=== PATIENT | male | born 1935 | race Hispanic/Latino ===

== ENCOUNTER 2016-03-08 18:31 | Inpatient (IN) | payer MEDICARE, OTHER ==
[2016-03-08 20:05] LABS: Basophils % (Auto) 0.5 % (0.0-1.8); Eosinophils % (Auto) 0.6 % (0.0-4.3); Hematocrit 35.7 % (35.5-45.6); Mean Corpuscular HGB Conc 34 % (32-34); Mean Corpuscular Hemoglobin 32 pg (28-32); Mean Corpuscular Volume 96 fl (84-94); Platelet Count 222 K/mm3 (140-440); Red Blood Count 3.74 M/mm3 (3.65-5.03); Red Cell Distribution Width 14.2 % (13.2-15.2); White Blood Count 11.6 K/mm3 (4.5-11.0)
[2016-03-08 20:22] LABS: Anion Gap 14 mmol/L; Blood Urea Nitrogen 18 mg/dL (9-20); Calcium 9.9 mg/dL (8.4-10.2); Carbon Dioxide 34 mmol/L (22-30); Chloride 95.5 mmol/L (98-107); Glucose 115 mg/dL (75-100); INR 5.74 (0.87-1.13); Partial Thromboplastin Time 80.6 Sec. (24.2-36.6); Potassium 3.7 mmol/L (3.6-5.0); Sodium 140 mmol/L (137-145)
--- NOTE | 2016-03-08 20:27 | Emergency Department Report ---
HPI - General Chief Complaint: Dyspnea/Respdistress Time Seen by Provider: 03/08/16 20:22 - HPI HPI: The patient is a 88-year-old male whom presents for evaluation of dyspnea. The patient reports greater than 2 weeks of cough productive of yellow sputum, associated with progressive dyspnea, severe for the past 2 days, exacerbated with exertion or physical activity, improved with rest. The patient denies fever, neck pain, sore throat, hemoptysis, syncope, chest pain, rash, unilateral leg swelling, calf muscle pain,. ED Past Medical Hx - Past Medical History Previous Medical History?: Yes Additional medical history: heart murmur, pt is deaf. - Social History Smoking Status: Never Smoker Substance Use Type: None ED Review of Systems ROS: Stated complaint: SHORTNESS OF BREATH Other details as noted in HPI Constitutional: weakness. denies: fever ENT: denies: throat pain Respiratory: cough, shortness of breath Cardiovascular: denies: chest pain Endocrine: excessive sweating Gastrointestinal: denies: abdominal pain Genitourinary: denies: dysuria Musculoskeletal: denies: back pain Skin: denies: rash Neurological: denies: headache Psychiatric: denies: suicidal thoughts Hematological/Lymphatic: easy bruising Physical Exam - Physical Exam Vital Signs: Vital Signs 03/08/16 03/08/16 03/08/16 16:37 17:05 18:00 Respiratory Rate Blood Pressure 108/59 115/83 128/104 O2 Sat by Pulse 96 Oximetry 03/08/16 19:57 Respiratory 12 Rate Blood Pressure O2 Sat by Pulse 98 Oximetry Physical Exam: General: poorly-nourished, well-developed, no acute distress Head: Normocephalic, atraumatic Eyes: normal sclera ENT: Mucous membranes are pink and moist Neck: trachea midline, neck supple, No neck stiffness, no cervical adenopathy Respiratory: Diminished breath sounds and expiratory wheezing present throughout lung is bilaterally, mild costal retractions, no respiratory distress Cardio: S1 and S2 present, no murmurs, rubs, gallops, capillary refill is brisk Abdomen: Normoactive bowel sounds, soft abdomen, no rigidity, no guarding or rebound tenderness Musc: No pitting edema Skin: No rash Neuro: no facial drooping, normal speech Psych: Normal affect ED Course Vital Signs 03/08/16 03/08/16 03/08/16 16:37 17:05 18:00 Respiratory Rate Blood Pressure 108/59 115/83 128/104 O2 Sat by Pulse 96 Oximetry 03/08/16 19:57 Respiratory 12 Rate Blood Pressure O2 Sat by Pulse 98 Oximetry ED Medical Decision Making - Lab Data Result diagrams: 03/08/16 19:40 03/08/16 19:40 - Medical Decision Making The patient was seen and examined by myself. The patient is placed on a surveillance specialist and continuous pulse ox. On initial evaluation, the patient was found to be in no distress, with low oxygen saturation of 89% on pulse oximetry , on 2 L of supplemental oxygen via nasal cannula. Evaluation orders were placed. The patient is given a breathing treatment and prednisone for txt of COPD. the patient is given Tessalon Perles for cough. Chest x-ray exhibits hyperinflation and otherwise is negative for focal consolidation, pleural effusions, pulmonary congestion, pneumothorax, or other acute cardio pulmonary disease process. Lab results revealed supratherapeutic INR of 5. The on-call hospitalist service was contacted. They agreed to admit the patient for further treatment and close monitoring. The ED admit order was placed. The patient was admitted in guarded condition. Critical care attestation.: If time is entered above; I have spent that time in minutes in the direct care of this critically ill patient, excluding procedure time. ED Disposition Clinical Impression: Acute exacerbation of chronic obstructive pulmonary disease (COPD), Supratherapeutic INR Respiratory failure with hypoxia Qualifiers: Chronicity: acute Qualified Code(s): J96.01 - Acute respiratory failure with hypoxia Disposition: OP ADMITTED IP TO THIS HOSP Is pt being admited?: Yes Does the pt Need Aspirin: Yes Condition: Stable Instructions: Chronic Obstructive Pulmonary Disease (ED) Referrals: PRIMARY CARE, [Primary Care Provider] - 3-5 Days Time of Disposition: 20:32
[2016-03-08] MEDS ORDERED: DUONEB 0.5 MG-3 MG/3 ML SOLN IH ONE (20:50)
[2016-03-08] MEDS ORDERED: DELTASONE PO ONE (20:51)
[2016-03-08] MEDS ORDERED: LEVAQUIN PO ONE (21:37)
[2016-03-08] MEDS ORDERED: TESSALON PERLES PO ONE (21:37)
[2016-03-08 21:47] LABS: ISTAT Base Excess 11; ISTAT HCO3 34.9; ISTAT PH 7.461 (7.35-7.45); ISTAT PO2 64 (80-105); ISTAT SO2 93; ISTAT TCO2 36
--- NOTE | 2016-03-08 22:47 | History and Physical Report ---
History of Present Illness Date of examination: 03/08/16 History of present illness: 80 year old man with history of AFIB, hypertension, hyperlipidemia comes to the emergency room for evaluation of shortness of breath.The patient refuse to give a history. the ex- states that the patient uses breathing treatment for years. Over the last 3 days, his breathing got worse. He also had a flare of gout and recieved a steroid shot. She has been using the ex- pro-air. He came to the emergency room for further evaluation, his symptoms worsen. She reports that he has a cough, unclear if it's productive Patient denies chest pain, palpitation, abdominal pain, hematochezia, dysuria, frequency, focal weakness, dysarthria, fever chills, polydipsia polyuria, hot or cold intolerance, easy bruisability, or rash or bleeding from mucosal membrane, rhinorrhea, epistaxis, earache, tinnitus, blurry vision, eye discharge , anxiety, depression. Other review of systems negative PAST SURGICAL HISTORY: Unknown SOCIAL HISTORY: Quit tobacco, no alcohol or drugs FAMILY HISTORY: Hypertension Medications and Allergies Allergies Allergy/AdvReac Type Severity Reaction Status Date / Time No Known Allergies Allergy Verified 03/09/16 01:28 Home Medications Medication Instructions Recorded Confirmed Last Taken Type Digoxin [Digox] 125 mcg PO DAILY 03/08/16 03/08/16 03/08/16 History Simvastatin [Zocor TAB] 20 mg PO QHS 03/08/16 03/08/16 03/07/16 History Sotalol HCl [Sotalol] 120 mg PO BID 03/08/16 03/08/16 03/08/16 History Warfarin [Coumadin] 2.5 mg PO QDAY 03/08/16 03/08/16 03/08/16 History Exam - Physical Exam Narrative exam: Gen. appearance: Patient lying in bed, no apparent distress HEENT: Normocephalic, atraumatic, pupils equally round and reactive to light, extraocular movement intact, and no sclericterus,. No JVD or thyromegaly or nodule,neck supple, no carotid bruit ,mucous membranes moist, no exudate or erythema Heart: S1, S2, regular rate and rhythm Lungs: Wheezing bilaterally, breathing comfortable Abdomen: Positive bowel sounds, nontender, nondistended, no organomegaly Extremity: No edema, cyanosis, clubbing Skin: No rash, nodules, warm, dry Neuro: Oriented 3, cranial nerves II-12 intact, speech is fluent, motor and sensory intact - Constitutional Vitals: Temp Pulse Resp BP Pulse Ox 60 18 128/104 98 03/08/16 21:42 03/08/16 21:42 03/08/16 18:00 03/08/16 19:57 Results - Labs CBC & Chem 7: 03/09/16 05:49 03/09/16 05:49 Labs: Abnormal lab results 03/08/16 03/08/16 03/08/16 Range/Units 19:40 19:40 19:40 WBC 11.6 H (4.5-11.0) K/mm3 MCV 96 H (84-94) fl Lymph % (Auto) 5.9 L (13.4-35.0) % [place] % (Auto) 9.1 H (0.0-7.3) % Lymph # 0.7 L (1.2-5.4) K/mm3 [place] # 1.1 H (0.0-0.8) K/mm3 Seg Neutrophils % 83.9 H (40.0-70.0) % Seg Neutrophils # 9.7 H (1.8-7.7) K/mm3 PT 52.4 H (12.2-14.9) Sec. INR 5.74 H* (0.87-1.13) APTT 80.6 H* (24.2-36.6) Sec. POC ABG pH (7.35-7.45) POC ABG pCO2 (35-45) POC ABG pO2 (80-105) Chloride 95.5 L (98-107) mmol/L Carbon Dioxide 34 H (22-30) mmol/L Glucose 115 H (75-100) mg/dL NT-Pro-B Natriuret Pep (0-900) pg/mL 03/08/16 03/08/16 Range/Units 19:40 21:15 WBC (4.5-11.0) K/mm3 MCV (84-94) fl Lymph % (Auto) (13.4-35.0) % [place] % (Auto) (0.0-7.3) % Lymph # (1.2-5.4) K/mm3 [place] # (0.0-0.8) K/mm3 Seg Neutrophils % (40.0-70.0) % Seg Neutrophils # (1.8-7.7) K/mm3 PT (12.2-14.9) Sec. INR (0.87-1.13) APTT (24.2-36.6) Sec. POC ABG pH 7.461 H (7.35-7.45) POC ABG pCO2 49.0 H (35-45) POC ABG pO2 64 L (80-105) Chloride (98-107) mmol/L Carbon Dioxide (22-30) mmol/L Glucose (75-100) mg/dL NT-Pro-B Natriuret Pep 6803 H (0-900) pg/mL - Imaging and Cardiology EKG: image reviewed Chest x-ray: image reviewed Assessment and Plan COPD exacerabation Afib with supra-therapeutic INR Hypertension Hyperlipidemia Admit to medicine Start high dose IV steroids, nebulizer treatment Check cardiac enzymes, hold coumadin Continue outpatient medications DVT prophalaxis with coumadin
[2016-03-09] MEDS ORDERED: DUONEB 0.5 MG-3 MG/3 ML SOLN IH ONE (01:25)
[2016-03-09] MEDS ORDERED: MILK OF MAGNESIA PO PRN (01:45)
[2016-03-09] MEDS ORDERED: ZOFRAN IV PRN (01:45)
[2016-03-09] MEDS ORDERED: TYLENOL PO PRN (01:45)
[2016-03-09] MEDS ORDERED: DULCOLAX PR PRN (01:45)
[2016-03-09] MEDS ORDERED: DUONEB 0.5 MG-3 MG/3 ML SOLN IH SCH (02:00)
[2016-03-09 06:11] LABS: Hematocrit 31.2 % (35.5-45.6); Hemoglobin 10.7 gm/dl (11.8-15.2); Mean Corpuscular HGB Conc 34 % (32-34); Mean Corpuscular Hemoglobin 33 pg (28-32); Mean Corpuscular Volume 96 fl (84-94); Platelet Count 193 K/mm3 (140-440); Red Blood Count 3.26 M/mm3 (3.65-5.03); Red Cell Distribution Width 14.2 % (13.2-15.2)
[2016-03-09 06:23] LABS: INR 4.67 (0.87-1.13)
[2016-03-09 06:51] LABS: Blood Urea Nitrogen 20 mg/dL (9-20); Calcium 9.5 mg/dL (8.4-10.2); Carbon Dioxide 38 mmol/L (22-30); Chloride 95.3 mmol/L (98-107); Glucose 146 mg/dL (75-100); Potassium 3.7 mmol/L (3.6-5.0); Sodium 139 mmol/L (137-145)
[2016-03-09 06:52] LABS: Anion Gap 9 mmol/L
[2016-03-09 07:30] LABS: Creatine Kinase 15 units/L (55-170); Creatine Kinase MB < 1.0 ng/mL (0.0-4.0)
[2016-03-09] MEDS: DUONEB 0.5 MG-3 MG/3 ML SOLN IH SCH ×4 (08:09→20:05)
[2016-03-09 08:18] LABS: Creatine Kinase 14 units/L (55-170); Creatine Kinase MB < 1.0 ng/mL (0.0-4.0)
--- NOTE | 2016-03-09 09:52 | XRay Report ---
Chest 2 views: History: Shortness of breath. Findings: Normal cardiomediastinal silhouette. Trachea is midline. Evidence of COPD. No acute consolidation or pleural effusion. Impression: COPD. No acute lung changes.
[2016-03-09 11:47] LABS: Blastocytes % (Manual) 0 %
[2016-03-09 11:48] LABS: Anisocytosis 1+; Basophils % (Manual) 0 % (0.0-1.8); Diff Status Complete; Eosinophils % (Manual) 0 % (0.0-4.3); Platelet Estimate Consistent w Auto
--- NOTE | 2016-03-09 11:58 | Progress Note ---
Assessment and Plan Assessment and plan: --Coagulopathy/supratherapeutic INR Hold anticoagulants, closely monitor INRs therapeutic goal between 2 and 3 No external evidence of bleeding --A. fib/rate controlled On digoxin and beta nicola, chronic anticoagulation on Coumadin Coumadin held secondary to supratherapeutic INR --Acute exacerbation of COPD Symptoms slightly improved The new oxygen titrated to O2 sats more than 90% Nebulizers, tapering dose of IV steroids and supportive care --Hypertension Moderate control, continue current antihypertensives and when necessary hydralazine --dyslipidemia Stable on lipid-lowering medications --DVT prophylaxis supratherapeutic INR of SCDs DC planning possible discharge in 1-2 days if stable Home with home health, patient refused rehabilitation/SNF History Interval history: Patient seen and evaluated medical records reviewed No new events reported by the nursing staff Patient feels better no new complaints INR is supratherapeutic no evidence of external bleeding Patient denies any chest pain shortness of breath Vital signs reviewed stable Hospitalist Physical - Constitutional Vitals: Temp Pulse Resp BP Pulse Ox 97.6 F 65 18 180/79 98 03/09/16 08:00 03/09/16 11:27 03/09/16 11:27 03/09/16 08:00 03/09/16 08:09 General appearance: Present: no acute distress, well-nourished - EENT Eyes: Present: PERRL, EOM intact - Neck Neck: Present: supple, normal ROM - Respiratory Respiratory effort: normal Respiratory: bilateral: diminished, negative: rales, rhonchi, wheezing - Cardiovascular Rhythm: regular Heart Sounds: Present: S1 & S2 - Extremities Extremities: no ischemia, pulses intact, pulses symmetrical Peripheral Pulses: within normal limits - Abdominal General gastrointestinal: soft, non-tender, non-distended, normal bowel sounds - Integumentary Integumentary: Present: clear, warm - Psychiatric Psychiatric: appropriate mood/affect, cooperative - Neurologic Neurologic: CNII-XII intact, moves all extremities Results - Labs CBC & Chem 7: 03/09/16 05:49 03/09/16 05:49 Labs: Laboratory Last Values WBC 7.0 K/mm3 (4.5-11.0) 03/09/16 05:49 RBC 3.26 M/mm3 (3.65-5.03) L 03/09/16 05:49 Hgb 10.7 gm/dl (11.8-15.2) L 03/09/16 05:49 Hct 31.2 % (35.5-45.6) L 03/09/16 05:49 MCV 96 fl (84-94) H 03/09/16 05:49 MCH 33 pg (28-32) H 03/09/16 05:49 MCHC 34 % (32-34) 03/09/16 05:49 RDW 14.2 % (13.2-15.2) 03/09/16 05:49 Plt Count 193 K/mm3 (140-440) 03/09/16 05:49 Lymph % (Auto) 5.9 % (13.4-35.0) L 03/08/16 19:40 [place] % (Auto) 9.1 % (0.0-7.3) H 03/08/16 19:40 Eos % (Auto) 0.6 % (0.0-4.3) 03/08/16 19:40 Baso % (Auto) 0.5 % (0.0-1.8) 03/08/16 19:40 Lymph # 0.7 K/mm3 (1.2-5.4) L 03/08/16 19:40 [place] # 1.1 K/mm3 (0.0-0.8) H 03/08/16 19:40 Eos # 0.1 K/mm3 (0.0-0.4) 03/08/16 19:40 Baso # 0.1 K/mm3 (0.0-0.1) 03/08/16 19:40 Add Manual Diff Complete 03/09/16 05:49 Total Counted 100 03/09/16 05:49 Seg Neutrophils % Drag Out Man 03/09/16 05:49 Seg Neuts % (Manual) 97.0 % (40.0-70.0) H 03/09/16 05:49 Band Neutrophils % 0 % 03/09/16 05:49 Lymphocytes % (Manual) 2.0 % (13.4-35.0) L 03/09/16 05:49 Reactive Lymphs % (Man) 0 % 03/09/16 05:49 Monocytes % (Manual) 1.0 % (0.0-7.3) 03/09/16 05:49 Eosinophils % (Manual) 0 % (0.0-4.3) 03/09/16 05:49 Basophils % (Manual) 0 % (0.0-1.8) 03/09/16 05:49 Metamyelocytes % 0 % 03/09/16 05:49 Myelocytes % 0 % 03/09/16 05:49 Promyelocytes % 0 % 03/09/16 05:49 Blast Cells % 0 % 03/09/16 05:49 Nucleated RBC % Not Reportable 03/09/16 05:49 Seg Neutrophils # 9.7 K/mm3 (1.8-7.7) H 03/08/16 19:40 Seg Neutrophils # Man 6.8 K/mm3 (1.8-7.7) 03/09/16 05:49 Band Neutrophils # 0.0 K/mm3 03/09/16 05:49 Lymphocytes # (Manual) 0.1 K/mm3 (1.2-5.4) L 03/09/16 05:49 Abs React Lymphs (Man) 0.0 K/mm3 03/09/16 05:49 Monocytes # (Manual) 0.1 K/mm3 (0.0-0.8) 03/09/16 05:49 Eosinophils # (Manual) 0.0 K/mm3 (0.0-0.4) 03/09/16 05:49 Basophils # (Manual) 0.0 K/mm3 (0.0-0.1) 03/09/16 05:49 Metamyelocytes # 0.0 K/mm3 03/09/16 05:49 Myelocytes # 0.0 K/mm3 03/09/16 05:49 Promyelocytes # 0.0 K/mm3 03/09/16 05:49 Blast Cells # 0.0 K/mm3 03/09/16 05:49 WBC Morphology Not Reportable 03/09/16 05:49 Hypersegmented Neuts Not Reportable 03/09/16 05:49 Hyposegmented Neuts Not Reportable 03/09/16 05:49 Hypogranular Neuts Not Reportable 03/09/16 05:49 Smudge Cells Not Reportable 03/09/16 05:49 Toxic Granulation Not Reportable 03/09/16 05:49 Toxic Vacuolation Not Reportable 03/09/16 05:49 Dohle Bodies Not Reportable 03/09/16 05:49 Pelger-Huet Anomaly Not Reportable 03/09/16 05:49 Justino Rods Not Reportable 03/09/16 05:49 Platelet Estimate Consistent w auto 03/09/16 05:49 Clumped Platelets Not Reportable 03/09/16 05:49 Plt Clumps, EDTA Not Reportable 03/09/16 05:49 Large Platelets Not Reportable 03/09/16 05:49 Giant Platelets Not Reportable 03/09/16 05:49 Platelet Satelliting Not Reportable 03/09/16 05:49 Plt Morphology Comment Not Reportable 03/09/16 05:49 RBC Morphology Not Reportable 03/09/16 05:49 Dimorphic RBCs Not Reportable 03/09/16 05:49 Polychromasia Not Reportable 03/09/16 05:49 Hypochromasia Not Reportable 03/09/16 05:49 Poikilocytosis Not Reportable 03/09/16 05:49 Anisocytosis 1+ 03/09/16 05:49 Microcytosis Not Reportable 03/09/16 05:49 Macrocytosis Not Reportable 03/09/16 05:49 Spherocytes Not Reportable 03/09/16 05:49 Pappenheimer Bodies Not Reportable 03/09/16 05:49 Sickle Cells Not Reportable 03/09/16 05:49 Target Cells Not Reportable 03/09/16 05:49 Tear Drop Cells Not Reportable 03/09/16 05:49 Ovalocytes Not Reportable 03/09/16 05:49 Helmet Cells Not Reportable 03/09/16 05:49 [place] Bodies Not Reportable 03/09/16 05:49 [place] Rings Not Reportable 03/09/16 05:49 Daniel Cells Not Reportable 03/09/16 05:49 Bite Cells Not Reportable 03/09/16 05:49 Crenated Cell Not Reportable 03/09/16 05:49 Elliptocytes Not Reportable 03/09/16 05:49 Acanthocytes (Spur) Not Reportable 03/09/16 05:49 Rouleaux Not Reportable 03/09/16 05:49 Hemoglobin C Crystals Not Reportable 03/09/16 05:49 Schistocytes Not Reportable 03/09/16 05:49 Malaria parasites Not Reportable 03/09/16 05:49 [place] Bodies Not Reportable 03/09/16 05:49 Hem Pathologist Commnt No 03/09/16 05:49 PT 44.5 Sec. (12.2-14.9) H 03/09/16 05:49 INR 4.67 (0.87-1.13) H 03/09/16 05:49 APTT 70.0 Sec. (24.2-36.6) H* 03/09/16 05:49 POC ABG pH 7.461 (7.35-7.45) H 03/08/16 21:15 POC ABG pCO2 49.0 (35-45) H 03/08/16 21:15 POC ABG pO2 64 (80-105) L 03/08/16 21:15 POC ABG HCO3 34.9 03/08/16 21:15 POC ABG Total CO2 36 03/08/16 21:15 POC ABG O2 Sat 93 03/08/16 21:15 POC ABG Base Excess 11 03/08/16 21:15 FiO2 4 % 03/08/16 21:15 Sodium 139 mmol/L (137-145) 03/09/16 05:49 Potassium 3.7 mmol/L (3.6-5.0) 03/09/16 05:49 Chloride 95.3 mmol/L (98-107) L 03/09/16 05:49 Carbon Dioxide 38 mmol/L (22-30) H 03/09/16 05:49 Anion Gap 9 mmol/L 03/09/16 05:49 BUN 20 mg/dL (9-20) 03/09/16 05:49 Creatinine 1.0 mg/dL (0.8-1.5) 03/09/16 05:49 Estimated GFR > 60 ml/min 03/09/16 05:49 BUN/Creatinine Ratio 20.00 % 03/09/16 05:49 Glucose 146 mg/dL (75-100) H 03/09/16 05:49 Lactic Acid 1.0 mmol/L (0.7-2.0) 03/08/16 21:08 Calcium 9.5 mg/dL (8.4-10.2) 03/09/16 05:49 Total Creatine Kinase 14 units/L (55-170) L 03/09/16 07:35 CK-MB (CK-2) < 1.0 ng/mL (0.0-4.0) 03/09/16 07:35 CK-MB (CK-2) Rel Index 7.1 (0-4) H 03/09/16 07:35 Troponin T < 0.010 ng/mL (0.00-0.029) 03/09/16 07:35 NT-Pro-B Natriuret Pep 6803 pg/mL (0-900) H 03/08/16 19:40
--- NOTE | 2016-03-09 22:10 | Admit Criteria Form ---
Admission Criteria Documentation: COPD Clinical Indications for Admission to Inpatient Care (Place 'X' for any and all applicable criteria): Admission is indicated for ANY ONE of the following (1)(2)(3): [X ]I. Acute exacerbation by high-risk comorbidity (e.g., pneumonia, dysrhythmia, heart failure, pleural effusion, pneumothorax) or severe underlying COPD (e.g., steroid dependent) [ ]II. Inpatient admission required rather than observation care (see Chronic Obstructive Pulmonary Disease: Observation Care) because of ANY ONE of the following: [ ]a) New or pre-existing signs or symptoms of COPD (eg, dyspnea or Tachypnea at rest or with minimal activity) that persist despite outpatient and observation care treatment [ ]b) New-onset hypoxemia (room air SaO2 less than 90%, PO2 less than 60 mm Hg (8.0 kPa)) that persists despite outpatient and observation care treatment [ ]c) Worsening of pre-existing hypoxemia (eg, new or increased requirement for supplemental oxygen to maintain oxygenation at baseline level) that persists despite outpatient and observation care treatment, with oxygen treatment needs performable only in acute inpatient setting [ ]d) Hypercarbia (PCO2 greater than 40 mm Hg (5.3 kPa))-induced respiratory acidosis (pH less than 7.35) that persists despite outpatient and observation care treatment [ ]e) Supplemental oxygen or respiratory treatments for over 24 hours that are performable only in acute inpatient setting [ ]f) Chest tube placement with active evacuation (e.g., suction, drainage) (5) [ ]g) Other condition, treatment or monitoring requiring inpatient admission [ ]III. Planned invasive surgical or diagnostic procedures requiring acute- care hospitalization [ ]IV. Acute respiratory failure (e.g., uncompensated hypercarbia, severe hypoxemia) [ ]V. Severe comorbid condition (e.g., severe steroid myopathy, acute vertebral fracture) that has acutely worsened pulmonary function [ ]. Confusion state, lethargy, obtundation, stupor or coma Extended stay beyond goal length of stay may be needed for (31)(32): [ ]a ) Respiratory Failure. [ ]b) Severe or persisting hypoxemia or hypercarbia [ ]c) Severe or persistent dyspnea [ ]d) Comorbidities (e.g. chronic heart failure, atrial fibrillation with rapid response, pneumonia) [ ]e) Malnutrition The original [facility] content created by [facility] has been revised. The portions of the content which have been revised are identified through the use of italic text or in bold, and [facility] has neither reviewed nor approved the modified material. All other unmodified content is copyright [facility]. Please see references footnoted in the original [facility] edition 2016 Admission Criteria Met: Yes
[2016-03-10 08:09] LABS: INR 5.15 (0.87-1.13)
[2016-03-10] MEDS: DUONEB 0.5 MG-3 MG/3 ML SOLN IH SCH ×4 (09:04→21:52)
--- NOTE | 2016-03-10 12:51 | Progress Note ---
Assessment and Plan Assessment and plan: --Coagulopathy/supratherapeutic INR Worsening INR today 5.15, anticoagulants on hold, Dose of vitamin K ,No external evidence of bleeding --History of A. fib Rate controlled, digoxin and sotalol are on hold Secondary to bradycardia --Chronic anticoagulation on Coumadin, supratherapeutic INR Coumadin held, --Acute exacerbation of COPD Symptoms slightly improved The new oxygen titrated to O2 sats more than 90% Nebulizers, decrease IV steroids and supportive care --Hypertension Moderate control, continue current antihypertensives and when necessary hydralazine --dyslipidemia Stable on lipid-lowering medications --DVT prophylaxis supratherapeutic INR , SCDs --Full CODE STATUS --DC planning patient is management Plan of care discussed with the patient as well as the nurse History Interval history: Reason seen and evaluated in his room medical records reviewed No new events reported by the nursing staff Patient feels better no new complaints INR remains supratherapeutic No evidence of bleeding Hospitalist Physical - Constitutional Vitals: Temp Pulse Resp BP Pulse Ox 97.8 F 70 20 143/67 98 03/10/16 08:03 03/10/16 08:45 03/10/16 08:45 03/10/16 08:03 03/10/16 08:25 General appearance: Present: no acute distress, well-nourished, other (hearing- impaired) - EENT Eyes: Present: PERRL, EOM intact - Neck Neck: Present: supple, normal ROM - Respiratory Respiratory effort: normal Respiratory: bilateral: diminished, negative: rales, rhonchi, wheezing - Cardiovascular Rhythm: regular Heart Sounds: Present: S1 & S2 - Extremities Extremities: no ischemia, pulses intact, pulses symmetrical - Abdominal General gastrointestinal: soft, non-tender, non-distended, normal bowel sounds - Integumentary Integumentary: Present: clear, warm - Psychiatric Psychiatric: appropriate mood/affect, cooperative - Neurologic Neurologic: CNII-XII intact, moves all extremities Results - Labs CBC & Chem 7: 03/09/16 05:49 03/09/16 05:49 Labs: Laboratory Last Values WBC 7.0 K/mm3 (4.5-11.0) 03/09/16 05:49 RBC 3.26 M/mm3 (3.65-5.03) L 03/09/16 05:49 Hgb 10.7 gm/dl (11.8-15.2) L 03/09/16 05:49 Hct 31.2 % (35.5-45.6) L 03/09/16 05:49 MCV 96 fl (84-94) H 03/09/16 05:49 MCH 33 pg (28-32) H 03/09/16 05:49 MCHC 34 % (32-34) 03/09/16 05:49 RDW 14.2 % (13.2-15.2) 03/09/16 05:49 Plt Count 193 K/mm3 (140-440) 03/09/16 05:49 Lymph % (Auto) 5.9 % (13.4-35.0) L 03/08/16 19:40 Darke % (Auto) 9.1 % (0.0-7.3) H 03/08/16 19:40 Eos % (Auto) 0.6 % (0.0-4.3) 03/08/16 19:40 Baso % (Auto) 0.5 % (0.0-1.8) 03/08/16 19:40 Lymph # 0.7 K/mm3 (1.2-5.4) L 03/08/16 19:40 Darke # 1.1 K/mm3 (0.0-0.8) H 03/08/16 19:40 Eos # 0.1 K/mm3 (0.0-0.4) 03/08/16 19:40 Baso # 0.1 K/mm3 (0.0-0.1) 03/08/16 19:40 Add Manual Diff Complete 03/09/16 05:49 Total Counted 100 03/09/16 05:49 Seg Neutrophils % Director Of Religious Activities 03/09/16 05:49 Seg Neuts % (Manual) 97.0 % (40.0-70.0) H 03/09/16 05:49 Band Neutrophils % 0 % 03/09/16 05:49 Lymphocytes % (Manual) 2.0 % (13.4-35.0) L 03/09/16 05:49 Reactive Lymphs % (Man) 0 % 03/09/16 05:49 Monocytes % (Manual) 1.0 % (0.0-7.3) 03/09/16 05:49 Eosinophils % (Manual) 0 % (0.0-4.3) 03/09/16 05:49 Basophils % (Manual) 0 % (0.0-1.8) 03/09/16 05:49 Metamyelocytes % 0 % 03/09/16 05:49 Myelocytes % 0 % 03/09/16 05:49 Promyelocytes % 0 % 03/09/16 05:49 Blast Cells % 0 % 03/09/16 05:49 Nucleated RBC % Not Reportable 03/09/16 05:49 Seg Neutrophils # 9.7 K/mm3 (1.8-7.7) H 03/08/16 19:40 Seg Neutrophils # Man 6.8 K/mm3 (1.8-7.7) 03/09/16 05:49 Band Neutrophils # 0.0 K/mm3 03/09/16 05:49 Lymphocytes # (Manual) 0.1 K/mm3 (1.2-5.4) L 03/09/16 05:49 Abs React Lymphs (Man) 0.0 K/mm3 03/09/16 05:49 Monocytes # (Manual) 0.1 K/mm3 (0.0-0.8) 03/09/16 05:49 Eosinophils # (Manual) 0.0 K/mm3 (0.0-0.4) 03/09/16 05:49 Basophils # (Manual) 0.0 K/mm3 (0.0-0.1) 03/09/16 05:49 Metamyelocytes # 0.0 K/mm3 03/09/16 05:49 Myelocytes # 0.0 K/mm3 03/09/16 05:49 Promyelocytes # 0.0 K/mm3 03/09/16 05:49 Blast Cells # 0.0 K/mm3 03/09/16 05:49 WBC Morphology Not Reportable 03/09/16 05:49 Hypersegmented Neuts Not Reportable 03/09/16 05:49 Hyposegmented Neuts Not Reportable 03/09/16 05:49 Hypogranular Neuts Not Reportable 03/09/16 05:49 Smudge Cells Not Reportable 03/09/16 05:49 Toxic Granulation Not Reportable 03/09/16 05:49 Toxic Vacuolation Not Reportable 03/09/16 05:49 Dohle Bodies Not Reportable 03/09/16 05:49 Pelger-Huet Anomaly Not Reportable 03/09/16 05:49 Justino Rods Not Reportable 03/09/16 05:49 Platelet Estimate Consistent w auto 03/09/16 05:49 Clumped Platelets Not Reportable 03/09/16 05:49 Plt Clumps, EDTA Not Reportable 03/09/16 05:49 Large Platelets Not Reportable 03/09/16 05:49 Giant Platelets Not Reportable 03/09/16 05:49 Platelet Satelliting Not Reportable 03/09/16 05:49 Plt Morphology Comment Not Reportable 03/09/16 05:49 RBC Morphology Not Reportable 03/09/16 05:49 Dimorphic RBCs Not Reportable 03/09/16 05:49 Polychromasia Not Reportable 03/09/16 05:49 Hypochromasia Not Reportable 03/09/16 05:49 Poikilocytosis Not Reportable 03/09/16 05:49 Anisocytosis 1+ 03/09/16 05:49 Microcytosis Not Reportable 03/09/16 05:49 Macrocytosis Not Reportable 03/09/16 05:49 Spherocytes Not Reportable 03/09/16 05:49 Pappenheimer Bodies Not Reportable 03/09/16 05:49 Sickle Cells Not Reportable 03/09/16 05:49 Target Cells Not Reportable 03/09/16 05:49 Tear Drop Cells Not Reportable 03/09/16 05:49 Ovalocytes Not Reportable 03/09/16 05:49 Helmet Cells Not Reportable 03/09/16 05:49 [place] Bodies Not Reportable 03/09/16 05:49 [place] Rings Not Reportable 03/09/16 05:49 [place] Cells Not Reportable 03/09/16 05:49 Bite Cells Not Reportable 03/09/16 05:49 Crenated Cell Not Reportable 03/09/16 05:49 Elliptocytes Not Reportable 03/09/16 05:49 Acanthocytes (Spur) Not Reportable 03/09/16 05:49 Rouleaux Not Reportable 03/09/16 05:49 Hemoglobin C Crystals Not Reportable 03/09/16 05:49 Schistocytes Not Reportable 03/09/16 05:49 Malaria parasites Not Reportable 03/09/16 05:49 [place] Bodies Not Reportable 03/09/16 05:49 Hem Pathologist Commnt No 03/09/16 05:49 PT 48.1 Sec. (12.2-14.9) H 03/10/16 06:49 INR 5.15 (0.87-1.13) H* 03/10/16 06:49 APTT 70.0 Sec. (24.2-36.6) H* 03/09/16 05:49 POC ABG pH 7.461 (7.35-7.45) H 03/08/16 21:15 POC ABG pCO2 49.0 (35-45) H 03/08/16 21:15 POC ABG pO2 64 (80-105) L 03/08/16 21:15 POC ABG HCO3 34.9 03/08/16 21:15 POC ABG Total CO2 36 03/08/16 21:15 POC ABG O2 Sat 93 03/08/16 21:15 POC ABG Base Excess 11 03/08/16 21:15 FiO2 4 % 03/08/16 21:15 Sodium 139 mmol/L (137-145) 03/09/16 05:49 Potassium 3.7 mmol/L (3.6-5.0) 03/09/16 05:49 Chloride 95.3 mmol/L (98-107) L 03/09/16 05:49 Carbon Dioxide 38 mmol/L (22-30) H 03/09/16 05:49 Anion Gap 9 mmol/L 03/09/16 05:49 BUN 20 mg/dL (9-20) 03/09/16 05:49 Creatinine 1.0 mg/dL (0.8-1.5) 03/09/16 05:49 Estimated GFR > 60 ml/min 03/09/16 05:49 BUN/Creatinine Ratio 20.00 % 03/09/16 05:49 Glucose 146 mg/dL (75-100) H 03/09/16 05:49 Lactic Acid 1.0 mmol/L (0.7-2.0) 03/08/16 21:08 Calcium 9.5 mg/dL (8.4-10.2) 03/09/16 05:49 Total Creatine Kinase 14 units/L (55-170) L 03/09/16 07:35 CK-MB (CK-2) < 1.0 ng/mL (0.0-4.0) 03/09/16 07:35 CK-MB (CK-2) Rel Index 7.1 (0-4) H 03/09/16 07:35 Troponin T < 0.010 ng/mL (0.00-0.029) 03/09/16 07:35 NT-Pro-B Natriuret Pep 6803 pg/mL (0-900) H 03/08/16 19:40
[2016-03-10] MEDS ORDERED: VITAMIN K (ADULT ONLY) 10 MG in NACL 0.9% 50 ML IV ONE (17:00)
[2016-03-11 07:04] LABS: INR 1.47 (0.87-1.13)
[2016-03-11] MEDS: DUONEB 0.5 MG-3 MG/3 ML SOLN IH SCH ×3 (07:50→16:18)
--- NOTE | 2016-03-11 11:20 | Discharge Summary ---
Providers - Providers Date of Admission: 03/08/16 21:52 Date of discharge: 03/11/16 Attending physician: KELLY ROBERTS 03/10/16 15:47 Physical Therapy Evaluation and Treat [CONS] Routine Comment: Reason For Exam: unsteady gait/evaluation for home PT Primary care physician: MECHANICAL SYSTEM TECHNICIAN Hospitalization Reason for admission: worsening shortness of breath Condition: Stable Pertinent studies: Chest x-ray; COPD Hospital course: Final diagnosis; --Coagulopathy secondary to Coumadin toxicity resolved --History of A. fib rate controlled --Acute exacerbation of COPD --Hypertension --Dyslipidemia --Chronic anticoagulation with Coumadin 80-year-old male patient with significant history of atrial fibrillation hypertension dyslipidemia was admitted through emergency room with worsening shortness of breath patient was initially evaluated noted to be in acute exacerbation of COPD patient is on Coumadin for chronic anticoagulation for A. fib and INR was supratherapeutic with no evidence of external bleeding Admitted to the hospital symptomatically managed Coumadin was held closely monitor for any evidence of bleeding INR gradually trended down to subtherapeutic levels today Today he is comfortable in bed alert awake oriented 3 not in acute distress vital signs are stable physical examination done by me prior to discharge is unremarkable as detailed below Patient is hemodynamically and clinically stable Home health nurse to monitor INR. Physical therapy, home oxygen 2 L via nasal cannula per protocol upon discharge Patient is hemodynamically and clinically stable for discharge and as noted any further acute inpatient care at this time I spent 35 minutes coordinating this discharge Disposition: DC/TX HOME UNDER HOME HEALTH Time spent for discharge: 35 min Core Measure Documentation - Palliative Care Palliative Care/ Comfort Measures: Not Applicable - Core Measures Any of the following diagnoses?: none Exam - Constitutional Vitals: Temp Pulse Resp BP Pulse Ox 97.7 F 60 20 144/66 97 03/11/16 08:12 03/11/16 08:12 03/11/16 08:12 03/11/16 08:12 03/11/16 08:12 General appearance: Present: no acute distress, well-nourished - EENT Eyes: Present: PERRL, EOM intact - Neck Neck: Present: supple, normal ROM - Respiratory Respiratory effort: normal Respiratory: bilateral: diminished, negative: rales, rhonchi, wheezing - Cardiovascular Rhythm: regular Heart Sounds: Present: S1 & S2 - Extremities Extremities: no ischemia, pulses intact, pulses symmetrical Peripheral Pulses: within normal limits - Abdominal General gastrointestinal: Present: soft, non-tender, non-distended, normal bowel sounds - Integumentary Integumentary: Present: clear, warm - Musculoskeletal Musculoskeletal: strength equal bilaterally - Psychiatric Psychiatric: appropriate mood/affect, cooperative - Neurologic Neurologic: CNII-XII intact, moves all extremities Plan Activity: advance as tolerated, fall precautions Diet: low cholesterol, low salt, other (Coumadin precautions) Special Instructions: physical therapy, home health RN (monitor INR/target level 2-3) Durable Medical Equipment Needed Upon Discharge: Oxygen (oxygen 2 lt via NC) Additional Instructions: Hold Coumadin if INR is more than 3 in contact M.D. Hold Coumadin if bleeding is noted and contact M.D. Next INR check on 2016, target INR 2-3 Follow up with: PRIMARY CARE, [Primary Care Provider] - 3-5 Days Forms: Warfarin Discharge Instruction Prescriptions: ALBUTEROL Inhaler [ProAir HFA Inhaler] 2 puff IH QID PRN #1 inhalation PRN Reason: Shortness Of Breath Prednisone [predniSONE 10 mg (6-Day Pack, 21 Tabs)] 10 mg PO .TAPER #1 tab.ds.pk
[2016-03-11 11:57] VITALS: BP 132/82
[2016-03-11] MEDS ORDERED: COUMADIN PO SCH (17:00)
== END 2016-03-11 17:07 | disposition home health service (06) | DRG 813 ==
LOC: ED 18:31 → 3A 21:52
PROVIDERS: ADMIT Internal Medicine; ATTEND Internal Medicine
PROC: 4A033R1 Measurement of Arterial Saturation, Peripheral, Percutaneous Approach (ICD-10-PCS; principal; 2016-03-08)
DX: D68.8 Other specified coagulation defects (principal); J96.01 Acute respiratory failure with hypoxia; J44.1 Chronic obstructive pulmonary disease with (acute) exacerbation; I10 Essential (primary) hypertension; I48.91 Unspecified atrial fibrillation; E78.5 Hyperlipidemia, unspecified; T45.515A Adverse effect of anticoagulants, initial encounter; Z87.891 Personal history of nicotine dependence; Z79.899 Other long term (current) drug therapy; Z79.01 Long term (current) use of anticoagulants; Z82.49 Family history of ischemic heart disease and other diseases of the circulatory system
CPT/HCPCS: 36415; 71020; 80048; 82140; 82550; 82553; 82803; 83880; 84484; 85007; 85025; 85610; 85730; 87400; 93005; 93010; 94640; 94760; G8978-GP; G8979-GP; G8980-GP; J2920; J3430; J7512

== ENCOUNTER 2016-03-20 12:40 | Inpatient (IN) | payer MEDICARE, OTHER ==
[2016-03-20] MEDS ORDERED: CARDIZEM ONE (14:45)
[2016-03-20] MEDS ORDERED: PROAIR IH PRN (15:23)
--- NOTE | 2016-03-20 15:37 | History and Physical Report ---
History of Present Illness Date of examination: 03/20/16 Chief complaint: Shortness of breath History of present illness: Patient is a 80 yo man with a history of AFIB, hypertension and hyperlipidemia comes to the [facility] emergency department with complaints of severe constant progressively worse shortness breath is started this morning without aggravating or relieving factors. The visiting nurse came over today and checked this Coumadin level which was high. He is extremely hard of hearing. Patient denies chest pain, palpitation, abdominal pain, hematochezia, dysuria, frequency, focal weakness, dysarthria, fever chills, polydipsia polyuria, hot or cold intolerance, easy bruisability, or rash or bleeding from mucosal membrane, rhinorrhea, epistaxis, earache, tinnitus, blurry vision, eye discharge , anxiety, depression. Other review of systems negative. He was just discharged , 03/11/16 with identical symptoms. Past History Past Medical History: other (as hpi) Past Surgical History: hernia repair Social history: full code. denies: smoking, alcohol abuse, prescription drug abuse, IV drug use Family history: no significant family history Medications and Allergies Allergies Allergy/AdvReac Type Severity Reaction Status Date / Time No Known Allergies Allergy Verified 03/09/16 01:28 Home Medications Medication Instructions Recorded Confirmed Last Taken Type Digoxin [Digox] 125 mcg PO DAILY 03/08/16 03/08/16 03/08/16 History Simvastatin [Zocor TAB] 20 mg PO QHS 03/08/16 03/08/16 03/07/16 History Warfarin [Coumadin] 2.5 mg PO QDAY 03/08/16 03/08/16 03/08/16 History ALBUTEROL Inhaler [ProAir HFA 2 puff IH QID PRN #1 inhalation 03/11/16 Unknown Rx Inhaler] Prednisone [predniSONE 10 mg 10 mg PO .TAPER #1 tab.ds.pk 03/11/16 Unknown Rx (6-Day Pack, 21 Tabs)] Active Meds: Active Medications Albuterol (Proair) 2 puff IH QID PRN PRN Reason: Shortness Of Breath Digoxin (Lanoxin) 0.125 mg PO DAILY MODESTA Simvastatin (Zocor) 20 mg PO QHS MODESTA Review of Systems All systems: negative (as HPI and all other ROS reviewed and negative.) Exam - Physical Exam Narrative exam: GEN: Thin frail cachectic, NAD, AWAKE, ALERT, ORIENTATED x 3 HEENT: NCAT, PERRL, EOMI, OP CLEAR NECK: SUPPLE, NO THYROMEGALY, NO JVD, NO LAD CVS: irregular irregular, NORMAL S1S2 LUNGS/CHEST: bibasilar crackles, NORMAL CHEST EXPANSION B, diminished AIR ENTRY B ABD: SOFT NTND, GBS, NO REBOUND OR GUARDING EXT/SKIN: NO SIGNIFICANT EDEMA OR RASH MSK: FROM X 4 EXTREMITIES NEURO: CN 2-12 GROSSLY INTACT, NO FOCAL DEFICITS PSY: CALM Results - Imaging and Cardiology EKG: image reviewed Assessment and Plan Patient is a 80 yo man with a history of AFIB, hypertension and hyperlipidemia comes to the [facility] emergency department with complaints of severe constant progressively worse shortness breath is started this morning without aggravating or relieving factors. The visiting nurse came over today and checked this Coumadin level which was high. He is extremely hard of hearing. Patient denies chest pain, palpitation, abdominal pain, hematochezia, dysuria, frequency, focal weakness, dysarthria, fever chills, polydipsia polyuria, hot or cold intolerance, easy bruisability, or rash or bleeding from mucosal membrane, rhinorrhea, epistaxis, earache, tinnitus, blurry vision, eye discharge , anxiety, depression. Other review of systems negative. He was just discharged , 03/11/16 with identical symptoms. 1. Afib/aflutter RVR, given iv cardizem x 1, consult cardiology 2. Coumadin toxicity: hold Coumadin 3. AE COPD: iv steriods, nebs with a/c
[2016-03-20] MEDS ORDERED: TYLENOL PO PRN (15:47)
[2016-03-20] MEDS ORDERED: XOPENEX IH ONE ×2 (15:53→16:00)
--- NOTE | 2016-03-20 16:01 | XRay Report ---
Portable chest: There is a diffuse increase in the bronchovascular markings except for an area of relative lucency in the right upper lobe. The lungs are probably hyperinflated. There is a small nodule in the lower right lung and may contain calcium due to its density. The mediastinal contour is unremarkable. There is no obvious vascular distention. Compared to a prior examination in on March 08, 2016 been no interval changes. Compared to an exam in 2011 the lungs may be more hyperinflated and the interstitial pattern somewhat more prominent. Impressions: Findings most consistent with chronic obstructive and interstitial lung disease.
[2016-03-20] MEDS ORDERED: CARDIZEM IV ONE (16:14)
--- NOTE | 2016-03-20 16:18 | Admit Criteria Form ---
Admission Criteria Documentation: RESPIRATORY FAILURE GRG Clinical Indications for Admission to Inpatient Care (Place 'X' for any and all applicable criteria): Hospital admission is needed for appropriate care of the patient because of acute respiratory failure or insufficiency as indicated by ANY ONE of the following(1)(2)(3)(4)(5)(6)(7)(8): [X]I. Mechanical ventilation needed (acute invasive or noninvasive) [X ]II. Severe ventilation deficit as indicated by ANY ONE of the following (9 ) [X ]a) Respiratory acidosis (pH less than 7.32 and partial pressure of carbon dioxide greater than 40 mm Hg (5.3 kPa)) [ X]b) Partial pressure of carbon dioxide greater than 44 mm Hg (5.9 kPa) (new) [ ]c) Airflow measurements less than 25% of predicted (eg, peak expiratory flow rate less than 100 L/minute) [ ]d) Forced vital capacity less than 15 mL/kg of ideal body weight, or 50% decrease in vital capacity from baseline [ ]III. Noncardiac pulmonary edema not resolving with rapid emergency treatment (8) [ ]IV. Severe respiratory distress as indicated by ANY ONE of the following: [ ]a) Severe tachypnea (respiratory rate greater than 30, greater than 45 for 6-month-old, greater than 60 for ) [ ]b) Severe hypoxemia (partial pressure of oxygen less than 50 mm Hg ( 6.7 kPa) on greater than 50% oxygen or partial pressure of oxygen to FIO2 ratio less than 200) [ ]c) Mental status deterioration from respiratory disease [ ]V. Airway obstruction or inadequate protection [A](10)(11) The original [employer] content created by [employer] has been revised. The portions of the content which have been revised are identified through the use of italic text or in bold, and [email or web address] has neither reviewed nor approved the modified material. All other unmodified content is copyright [employer]. Please see references footnoted in the original [employer] edition 2016 Admission Criteria Met: Yes
[2016-03-20 16:21] LABS: ISTAT Base Excess 10; ISTAT HCO3 36.1; ISTAT PCO2 70.6 (35-45); ISTAT PH 7.317 (7.35-7.45); ISTAT PO2 53 (80-105); ISTAT SO2 83; ISTAT TCO2 38
[2016-03-20 16:34] LABS: Creatine Kinase MB 2.3 ng/mL (0.0-4.0)
[2016-03-20 16:37] LABS: Alanine Aminotransferase 22 units/L (7-56); Alkaline Phosphatase 63 units/L (35-129); Anion Gap 15 mmol/L; Bilirubin,Direct 0.3 mg/dL (0-0.2); Bilirubin,Indirect 0.4 mg/dL; Bilirubin,Total 0.7 mg/dL (0.1-1.2); Blood Urea Nitrogen 20 mg/dL (9-20); Calcium 9.5 mg/dL (8.4-10.2); Carbon Dioxide 37 mmol/L (22-30); Chloride 92.8 mmol/L (98-107); Creatine Kinase 28 units/L (55-170); Glucose 104 mg/dL (75-100); Magnesium 1.7 mg/dL (1.7-2.3); Potassium 5.2 mmol/L (3.6-5.0); Sodium 140 mmol/L (137-145); Total Protein 6.4 g/dL (6.3-8.2)
[2016-03-20 16:48] LABS: Albumin 3.4 g/dL (3.9-5); Albumin/Globulin Ratio 1.1 %
[2016-03-20] MEDS ORDERED: NACL 0.9% 500 ML 500 ML ONE (16:52)
[2016-03-20] MEDS ORDERED: NACL 0.9% 500 ML 500 ML IV ONE (16:58)
[2016-03-20 17:00] LABS: Hematocrit 43.9 % (35.5-45.6); Hemoglobin 14.4 gm/dl (11.8-15.2); Mean Corpuscular HGB Conc 33 % (32-34); Mean Corpuscular Hemoglobin 32 pg (28-32); Mean Corpuscular Volume 97 fl (84-94); Red Blood Count 4.55 M/mm3 (3.65-5.03); White Blood Count 20.1 K/mm3 (4.5-11.0)
[2016-03-20] MEDS ORDERED: LANOXIN PO SCH (17:00)
[2016-03-20] MEDS ORDERED: NACL 0.9% 1000 ML 1,000 ML IV ONE (17:00)
[2016-03-20 17:01] LABS: Platelet Count 231 K/mm3 (140-440); Red Cell Distribution Width 14.6 % (13.2-15.2)
[2016-03-20 17:08] LABS: Partial Thromboplastin Time < 20.0 Sec. (24.2-36.6)
[2016-03-20 17:12] LABS: INR 5.97 (0.87-1.13)
--- NOTE | 2016-03-20 17:17 | Emergency Department Report ---
ED General Adult HPI - General Chief complaint: Dyspnea/Respdistress Time Seen by Provider: 03/20/16 16:17 Source: patient, family - History of Present Illness Initial comments: Patient presents to the emergency department with difficulty in breathing since the early a.m. He has history of chronic atrial fibrillation and apparently a cardiomyopathy. He cannot report any history of congestive heart failure but he is a poor historian. He is on chronic oral anticoagulation. He does not refer any chest pain leg pain leg swelling. He denies any headache he denies any neurological change. He is essentially here with shortness of breath. Patient was found to have a heart rate of 125 at the time of his 12-lead EKG which shows 2-1 flutter. He was brought back to the emergency department for urgent evaluation and stabilization. -: hour(s) Consistency: constant Improves with: none Associated Symptoms: denies other symptoms - Related Data Home Medications Medication Instructions Recorded Confirmed Last Taken Simvastatin [Zocor TAB] 20 mg PO QHS 03/08/16 03/08/16 03/07/16 Warfarin [Coumadin] 2.5 mg PO QDAY 03/08/16 03/08/16 03/08/16 Cinacalcet [Sensipar] 30 mg PO QDAY 03/20/16 03/20/16 03/19/16 Sotalol HCl [Sotalol] 120 mg PO BID 03/20/16 03/20/16 03/20/16 Previous Rx's Medication Instructions Recorded Last Taken Type ALBUTEROL Inhaler [ProAir HFA 2 puff IH QID PRN #1 inhalation 03/11/16 Unknown Rx Inhaler] Allergies Allergy/AdvReac Type Severity Reaction Status Date / Time No Known Allergies Allergy Verified 03/09/16 01:28 ED Review of Systems ROS: Stated complaint: Other details as noted in HPI Comment: Unobtainable due to pts medical conditions (medical history secondary to respiratory distress. However denies fever and chest pain denies abdominal pain other systems as reviewed were negative.) ED Past Medical Hx - Past Medical History Hx Headaches / Migraines: No Hx Seizures: No Hx COPD: Yes Hx Dementia: No Additional medical history: heart murmur, pt is deaf. - Social History Smoking Status: Never Smoker Substance Use Type: None - Medications Home Medications: Home Medications Medication Instructions Recorded Confirmed Last Taken Type Simvastatin [Zocor TAB] 20 mg PO QHS 03/08/16 03/08/16 03/07/16 History Warfarin [Coumadin] 2.5 mg PO QDAY 03/08/16 03/08/16 03/08/16 History ALBUTEROL Inhaler [ProAir HFA 2 puff IH QID PRN #1 inhalation 03/11/16 Unknown Rx Inhaler] Cinacalcet [Sensipar] 30 mg PO QDAY 03/20/16 03/20/16 03/19/16 History Sotalol HCl [Sotalol] 120 mg PO BID 03/20/16 03/20/16 03/20/16 History ED Physical Exam - General Limitations: Other (respiratory distress) General appearance: lethargic (mildly) - Head Head exam: Present: atraumatic, normocephalic - Eye Eye exam: Present: normal appearance. Absent: scleral icterus - ENT ENT exam: Present: normal exam, other (upper airway congestion no stridor) - Neck Neck exam: Present: normal inspection - Respiratory Respiratory exam: Present: rhonchi (bilateral), accessory muscle use, decreased breath sounds - Cardiovascular Cardiovascular Exam: Present: tachycardia, irregular rhythm - GI/Abdominal GI/Abdominal exam: Present: soft, normal bowel sounds. Absent: distended, tenderness, guarding, rebound, rigid - Extremities Exam Extremities exam: Present: normal inspection - Neurological Exam Neurological exam: Present: CN II-XII intact. Absent: motor sensory deficit ( as testable) - Psychiatric Psychiatric exam: Present: normal mood, flat affect - Skin Skin exam: Present: warm, dry, intact, normal color. Absent: rash ED Course Vital Signs 03/20/16 03/20/16 03/20/16 13:06 13:10 13:20 Pulse Rate Pulse Rate [ Bilateral Upper Lobe] Respiratory Rate Respiratory Rate [Bilateral Upper Lobe] Blood Pressure O2 Sat by Pulse 95 98 98 Oximetry 03/20/16 03/20/16 03/20/16 13:30 13:40 13:50 Pulse Rate Pulse Rate [ Bilateral Upper Lobe] Respiratory Rate Respiratory Rate [Bilateral Upper Lobe] Blood Pressure 115/75 114/81 O2 Sat by Pulse 98 96 98 Oximetry 03/20/16 03/20/16 03/20/16 14:00 14:10 14:20 Pulse Rate 117 H Pulse Rate [ Bilateral Upper Lobe] Respiratory 26 H Rate Respiratory Rate [Bilateral Upper Lobe] Blood Pressure 114/81 137/95 152/93 O2 Sat by Pulse 98 100 100 Oximetry 03/20/16 03/20/16 03/20/16 14:30 14:40 14:50 Pulse Rate 110 H 110 H 130 H Pulse Rate [ Bilateral Upper Lobe] Respiratory 27 H 25 H 24 Rate Respiratory Rate [Bilateral Upper Lobe] Blood Pressure 152/93 160/126 159/92 O2 Sat by Pulse 96 94 91 Oximetry 03/20/16 03/20/16 03/20/16 15:00 15:10 15:20 Pulse Rate 126 H 131 H 130 H Pulse Rate [ Bilateral Upper Lobe] Respiratory 26 H 22 26 H Rate Respiratory Rate [Bilateral Upper Lobe] Blood Pressure 159/92 130/92 139/94 O2 Sat by Pulse 92 96 100 Oximetry 03/20/16 03/20/16 03/20/16 15:30 15:40 15:50 Pulse Rate 131 H 130 H 132 H Pulse Rate [ Bilateral Upper Lobe] Respiratory 24 26 H 22 Rate Respiratory Rate [Bilateral Upper Lobe] Blood Pressure 139/94 150/90 161/114 O2 Sat by Pulse 98 99 96 Oximetry 03/20/16 03/20/16 03/20/16 16:01 16:06 16:11 Pulse Rate 131 H 132 H Pulse Rate [ 130 H Bilateral Upper Lobe] Respiratory 21 24 Rate Respiratory 24 Rate [Bilateral Upper Lobe] Blood Pressure 136/91 137/77 O2 Sat by Pulse 92 91 Oximetry 03/20/16 03/20/16 03/20/16 16:12 16:13 16:21 Pulse Rate 132 H 133 H Pulse Rate [ 134 H Bilateral Upper Lobe] Respiratory 22 Rate Respiratory 22 Rate [Bilateral Upper Lobe] Blood Pressure 141/85 O2 Sat by Pulse 99 Oximetry 03/20/16 03/20/16 03/20/16 16:25 16:31 16:40 Pulse Rate 130 H 91 H 74 Pulse Rate [ Bilateral Upper Lobe] Respiratory 24 23 21 Rate Respiratory Rate [Bilateral Upper Lobe] Blood Pressure 140/50 83/46 86/52 O2 Sat by Pulse 96 97 96 Oximetry 03/20/16 03/20/16 03/20/16 16:51 16:54 17:00 Pulse Rate 91 H 86 108 H Pulse Rate [ Bilateral Upper Lobe] Respiratory 21 16 Rate Respiratory Rate [Bilateral Upper Lobe] Blood Pressure 70/38 76/43 O2 Sat by Pulse 97 97 Oximetry 03/20/16 03/20/16 03/20/16 17:11 17:21 17:30 Pulse Rate 127 H 126 H 67 Pulse Rate [ Bilateral Upper Lobe] Respiratory 21 18 19 Rate Respiratory Rate [Bilateral Upper Lobe] Blood Pressure 86/52 79/48 70/45 O2 Sat by Pulse 99 97 97 Oximetry 03/20/16 03/20/16 03/20/16 17:41 17:50 18:00 Pulse Rate 52 L 100 H 57 L Pulse Rate [ Bilateral Upper Lobe] Respiratory 16 20 18 Rate Respiratory Rate [Bilateral Upper Lobe] Blood Pressure 76/43 59/38 66/43 O2 Sat by Pulse 100 100 100 Oximetry 03/20/16 18:11 Pulse Rate 54 L Pulse Rate [ Bilateral Upper Lobe] Respiratory 19 Rate Respiratory Rate [Bilateral Upper Lobe] Blood Pressure 66/43 O2 Sat by Pulse 100 Oximetry - Reevaluation(s) Reevaluation #1: Patient was initially awake and alert. He was given 5 mg aliquots of diltiazem. His blood pressure was well maintained. He was showing more of A. fib flutter pattern. He later developed a heart rate of 131 and regular. The flutter waves were difficult to see. He did not respond to 10 mg of diltiazem. His blood pressure was normal at that time. He was given some IV fluid. He was given one dose of adenosine transiently decreased his heart rate only and he resumed a regular rate of 131. I was planning to give him some amiodarone but his heart rate decreased spontaneously to the 90s. The amiodarone was held. Yes was obtained. It showed hypercapnia and very mild acidosis. The patient was placed on BiPAP. He was a given some judicious fluid. His respiratory status seemed to be improving. No blood gas showed decreased hypercapnia and improved pH. However, the patient's blood pressure began to drop. He was given additional fluid. He was placed on a Levophed drip. I spoke to Dr. Valderrama the wet chemistry analyst livestock nutrition territory manager for [facility] and explained to him the consultation as placed by Dr. Wallis the hospitalist who is actually already admitted the patient to his service. Being that the patient's blood pressure was dropping I placed a right femoral triple-lumen catheter in the right groin. This is done without difficulty. Dr. Royal was informed. He stated he would consult Dr. Ying the chief controller station/gis software developer. Obviously the patient is to be admitted to the intensive care unit. On reassessment the nurse informs me that Levophed is being titrated. On reassessment his blood pressure is now 98 systolic on Levophed. He is more awake. He seems to be breathing amply on BiPAP. He will be closely monitored. I do not think he needs to be intubated at this juncture. 03/20/16 18:32 - Central Line Placement Left Femoral Consent Obtained: verbal consent Time Out Performed: Yes Patient Placed on Monitor/Pulse Ox: Yes Prep: mask, gown, gloves Central Line Prep: Chlorhexidine scrub Local Anesthesia Used: Lidocaine 1% Amount of Anesthesia Used (mls): 6 Ultrasound Used for Placement: No Central Line Lumen Inserted: triple Bloods Obtained for Lab: No Central Line Position: good blood return (dark red non-pulsatile) Dressing Applied: Tegaderm Patient Tolerated Procedure: well Complications: none ED Medical Decision Making - Lab Data Result diagrams: 03/20/16 14:48 03/20/16 14:48 Laboratory Results - last 24 hr 03/20/16 03/20/16 03/20/16 14:48 14:48 14:48 WBC 20.1 H RBC 4.55 Hgb 14.4 Hct 43.9 MCV 97 H MCH 32 MCHC 33 RDW 14.6 Plt Count 231 PT INR APTT POC ABG pH POC ABG pCO2 POC ABG pO2 POC ABG HCO3 POC ABG Total CO2 POC ABG O2 Sat POC ABG Base Excess FiO2 Sodium 140 Potassium 5.2 H Chloride 92.8 L Carbon Dioxide 37 H Anion Gap 15 BUN 20 Creatinine 1.0 Estimated GFR > 60 BUN/Creatinine Ratio 20.00 Glucose 104 H Lactic Acid Calcium 9.5 Magnesium 1.7 Total Bilirubin 0.7 Direct Bilirubin 0.3 H Indirect Bilirubin 0.4 AST 20 ALT 22 Alkaline Phosphatase 63 Total Creatine Kinase 28 L CK-MB (CK-2) 2.3 CK-MB (CK-2) Rel Index 8.2 H Troponin T < 0.010 NT-Pro-B Natriuret Pep 94816 H Total Protein 6.4 Albumin 3.4 L Albumin/Globulin Ratio 1.1 TSH 0.713 Free T4 1.45 02/01/17 02/01/17 02/01/17 14:48 16:15 16:29 WBC RBC Hgb Hct MCV MCH MCHC RDW Plt Count PT 54.1 H INR 5.97 H* APTT < 20.0 L POC ABG pH 7.317 L POC ABG pCO2 70.6 H POC ABG pO2 53 L POC ABG HCO3 36.1 POC ABG Total CO2 38 POC ABG O2 Sat 83 POC ABG Base Excess 10 FiO2 32 Sodium Potassium Chloride Carbon Dioxide Anion Gap BUN Creatinine Estimated GFR BUN/Creatinine Ratio Glucose Lactic Acid 1.9 Calcium Magnesium Total Bilirubin Direct Bilirubin Indirect Bilirubin AST ALT Alkaline Phosphatase Total Creatine Kinase CK-MB (CK-2) CK-MB (CK-2) Rel Index Troponin T NT-Pro-B Natriuret Pep Total Protein Albumin Albumin/Globulin Ratio TSH Free T4 - EKG Data -: EKG Interpreted by Me - EKG Data Interpretation: other (2:1 flutter) - Radiology Data interpreted by me: Chest x-ray does not show any vidhya infiltrate. However the patient is certainly dry. There is chronic interstitial fibrosis consistent with COPD. Cardiac silhouette is not significantly enlarged. Critical Care Time: Yes Critical care time in (mins) excluding proc time.: 90 Critical care attestation.: If time is entered above; I have spent that time in minutes in the direct care of this critically ill patient, excluding procedure time. ED Disposition Clinical Impression: Shock, Atrial flutter with rapid ventricular response, Hyperkalemia Hypercapnic respiratory failure Qualifiers: Chronicity: acute Qualified Code(s): J96.02 - Acute respiratory failure with hypercapnia Leukocytosis Qualifiers: Leukocytosis type: unspecified Qualified Code(s): D72.829 - Elevated white blood cell count, unspecified Disposition: OP ADMITTED IP TO THIS HOSP Is pt being admited?: Yes Does the pt Need Aspirin: Yes Condition: Stable Time of Disposition: 18:33
[2016-03-20] MEDS ORDERED: CORDARONE 150 MG in D5W 100 ML IV ONE (17:18)
[2016-03-20 17:23] LABS: Basophils % (Manual) 0 % (0.0-1.8); Blastocytes % (Manual) 0 %
[2016-03-20 17:24] LABS: Eosinophils % (Manual) 0 % (0.0-4.3)
[2016-03-20] MEDS ORDERED: XYLOCAINE 1% 20 mL ONE (17:24)
[2016-03-20 17:25] LABS: Anisocytosis 1+; Diff Status Complete
[2016-03-20] MEDS ORDERED: LEVAQUIN 750MG/150ML 750 MG/150 ML BAG IV ONE (17:30)
[2016-03-20 17:37] LABS: ISTAT Base Excess 10; ISTAT HCO3 34.9; ISTAT PCO2 57.1 (35-45); ISTAT PH 7.395 (7.35-7.45); ISTAT PO2 85 (80-105); ISTAT SO2 96; ISTAT TCO2 37
[2016-03-20] MEDS ORDERED: LEVOPHED DRIP 4 MG/NS 250 ML 4 MG/250 ML BAG IV SCH ×2 (17:50→18:51)
[2016-03-20] MEDS ORDERED: CARDIZEM PO SCH (18:00)
[2016-03-20] MEDS ORDERED: LASIX IV SCH (18:00)
[2016-03-20] MEDS: ATROVENT IH SCH (18:01)
[2016-03-20 18:56] LABS: Creatine Kinase MB 2.4 ng/mL (0.0-4.0)
[2016-03-20 18:58] LABS: Creatine Kinase 33 units/L (55-170)
[2016-03-20] MEDS ORDERED: ROCEPHIN/NS 1 GM/50 ML 1 GM/50 ML BAG IV ONE (19:00)
[2016-03-20] MEDS: ZOCOR PO SCH (23:50)
[2016-03-21] MEDS ORDERED: ROCEPHIN/NS 1 GM/50 ML 1 GM/50 ML BAG IV ONE
[2016-03-21 02:55] LABS: Hematocrit 42.1 % (35.5-45.6); Hemoglobin 13.6 gm/dl (11.8-15.2); Mean Corpuscular HGB Conc 32 % (32-34); Mean Corpuscular Hemoglobin 32 pg (28-32); Mean Corpuscular Volume 97 fl (84-94); Platelet Count 212 K/mm3 (140-440); Red Blood Count 4.32 M/mm3 (3.65-5.03); White Blood Count 14.8 K/mm3 (4.5-11.0)
[2016-03-21 03:19] LABS: BUN/Creatinine Ratio 27.5; Calcium 9.1 mg/dL (8.4-10.2); Chloride 96.2 mmol/L (98-107); Potassium 4.8 mmol/L (3.6-5.0)
[2016-03-21 03:20] LABS: Creatine Kinase MB 2.3 ng/mL (0.0-4.0)
[2016-03-21 03:22] LABS: Creatine Kinase 25 units/L (55-170)
[2016-03-21 08:53] LABS: INR 10.46 (0.87-1.13)
--- NOTE | 2016-03-21 09:42 | Progress Note ---
Assessment and Plan Assessment and plan: Acute respiratory failure secondary to COPD exacerbation and rapid atrial fibrillation. He is on BiPAP. Pulmonology following. Atrial fibrillation with rapid ventricular response. He was given amiodarone emergency department. Cardiology consulted Hypotension. He was on Levophed this has now being discontinued since blood pressure is now stable. History of hypertension. Coumadin toxicity, Coagulopathy. Coumadin was 5.9 yesterday and is 10.4 today. Discussed with cardiology. Vitamin K IV 1 dose and repeat INR. COPD exacerbation. Continue Solu-Medrol and Nebulizers. Pulmonology consulte Protein energy malnutrition. Dietary consult. DVT prophylaxis. Full CODE STATUS History Interval history: Less shortness of breath, No chest pain Hospitalist Physical - Physical exam Narrative exam: Gen appearance: not in acute distress, cachetic HEENT: Normocephalic, atraumatic Neck : supple, no JVD Lungs: lungs clear, no crackles, no wheezing . Heart : S1 and S2 irregular, no murmurs rubs or gallop, Abdomen: soft, nontender, nondistended, normal bowel sounds Extremities: No edema, clubbing or cyanosis, Neuro : Awake alert oriented 3, no focal signs Psych :appropriate mood - Constitutional Vitals: Temp Pulse Resp BP Pulse Ox 97.4 F L 58 L 14 149/71 100 03/21/16 08:00 03/21/16 06:01 03/21/16 06:01 03/21/16 06:01 03/21/16 06:01 Results - Labs CBC & Chem 7: 03/21/16 02:32 03/21/16 02:32 Labs: Laboratory Last Values WBC 14.8 K/mm3 (4.5-11.0) H 03/21/16 02:32 RBC 4.32 M/mm3 (3.65-5.03) 03/21/16 02:32 Hgb 13.6 gm/dl (11.8-15.2) 03/21/16 02:32 Hct 42.1 % (35.5-45.6) 03/21/16 02:32 MCV 97 fl (84-94) H 03/21/16 02:32 MCH 32 pg (28-32) 03/21/16 02:32 MCHC 32 % (32-34) 03/21/16 02:32 RDW 15.0 % (13.2-15.2) 03/21/16 02:32 Plt Count 212 K/mm3 (140-440) 03/21/16 02:32 Add Manual Diff Complete 03/20/16 14:48 Total Counted 100 03/20/16 14:48 Seg Neuts % (Manual) 97.0 % (40.0-70.0) H 03/20/16 14:48 Band Neutrophils % 0 % 03/20/16 14:48 Lymphocytes % (Manual) 0 % (13.4-35.0) L 03/20/16 14:48 Reactive Lymphs % (Man) 0 % 03/20/16 14:48 Monocytes % (Manual) 3.0 % (0.0-7.3) 03/20/16 14:48 Eosinophils % (Manual) 0 % (0.0-4.3) 03/20/16 14:48 Basophils % (Manual) 0 % (0.0-1.8) 03/20/16 14:48 Metamyelocytes % 0 % 03/20/16 14:48 Myelocytes % 0 % 03/20/16 14:48 Promyelocytes % 0 % 03/20/16 14:48 Blast Cells % 0 % 03/20/16 14:48 Nucleated RBC % Not Reportable 03/20/16 14:48 Seg Neutrophils # Man 19.5 K/mm3 (1.8-7.7) H 03/20/16 14:48 Band Neutrophils # 0.0 K/mm3 03/20/16 14:48 Lymphocytes # (Manual) 0.0 K/mm3 (1.2-5.4) L 03/20/16 14:48 Abs React Lymphs (Man) 0.0 K/mm3 03/20/16 14:48 Monocytes # (Manual) 0.6 K/mm3 (0.0-0.8) 03/20/16 14:48 Eosinophils # (Manual) 0.0 K/mm3 (0.0-0.4) 03/20/16 14:48 Basophils # (Manual) 0.0 K/mm3 (0.0-0.1) 03/20/16 14:48 Metamyelocytes # 0.0 K/mm3 03/20/16 14:48 Myelocytes # 0.0 K/mm3 03/20/16 14:48 Promyelocytes # 0.0 K/mm3 03/20/16 14:48 Blast Cells # 0.0 K/mm3 03/20/16 14:48 WBC Morphology Not Reportable 03/20/16 14:48 Hypersegmented Neuts Not Reportable 03/20/16 14:48 Hyposegmented Neuts Not Reportable 03/20/16 14:48 Hypogranular Neuts Not Reportable 03/20/16 14:48 Smudge Cells Not Reportable 03/20/16 14:48 Toxic Granulation Not Reportable 03/20/16 14:48 Toxic Vacuolation Not Reportable 03/20/16 14:48 Dohle Bodies Not Reportable 03/20/16 14:48 Pelger-Huet Anomaly Not Reportable 03/20/16 14:48 Justino Rods Not Reportable 03/20/16 14:48 Platelet Estimate Appears normal 03/20/16 14:48 Clumped Platelets Not Reportable 03/20/16 14:48 Plt Clumps, EDTA Not Reportable 03/20/16 14:48 Large Platelets Not Reportable 03/20/16 14:48 Giant Platelets Not Reportable 03/20/16 14:48 Platelet Satelliting Not Reportable 03/20/16 14:48 Plt Morphology Comment Not Reportable 03/20/16 14:48 RBC Morphology Not Reportable 03/20/16 14:48 Dimorphic RBCs Not Reportable 03/20/16 14:48 Polychromasia Not Reportable 03/20/16 14:48 Hypochromasia Not Reportable 03/20/16 14:48 Poikilocytosis Not Reportable 03/20/16 14:48 Anisocytosis 1+ 03/20/16 14:48 Microcytosis Not Reportable 03/20/16 14:48 Macrocytosis Not Reportable 03/20/16 14:48 Spherocytes Not Reportable 03/20/16 14:48 Pappenheimer Bodies Not Reportable 03/20/16 14:48 Sickle Cells Not Reportable 03/20/16 14:48 Target Cells Not Reportable 03/20/16 14:48 Tear Drop Cells Not Reportable 03/20/16 14:48 Ovalocytes Not Reportable 03/20/16 14:48 Helmet Cells Not Reportable 03/20/16 14:48 [place] Bodies Not Reportable 03/20/16 14:48 [place] Rings Not Reportable 03/20/16 14:48 Uriah Cells Not Reportable 03/20/16 14:48 Bite Cells Not Reportable 03/20/16 14:48 Crenated Cell Not Reportable 03/20/16 14:48 Elliptocytes Not Reportable 03/20/16 14:48 Acanthocytes (Spur) Not Reportable 03/20/16 14:48 Rouleaux Not Reportable 03/20/16 14:48 Hemoglobin C Crystals Not Reportable 03/20/16 14:48 Schistocytes Not Reportable 03/20/16 14:48 Malaria parasites Not Reportable 03/20/16 14:48 Tigre Bodies Not Reportable 03/20/16 14:48 Hem Pathologist Commnt No 03/20/16 14:48 PT 54.1 Sec. (12.2-14.9) H 03/20/16 14:48 INR 5.97 (0.87-1.13) H* 03/20/16 14:48 APTT < 20.0 Sec. (24.2-36.6) L 03/20/16 14:48 POC ABG pH 7.395 (7.35-7.45) 03/20/16 17:31 POC ABG pCO2 57.1 (35-45) H 03/20/16 17:31 POC ABG pO2 85 (80-105) 03/20/16 17:31 POC ABG HCO3 34.9 03/20/16 17:31 POC ABG Total CO2 37 03/20/16 17:31 POC ABG O2 Sat 96 03/20/16 17:31 POC ABG Base Excess 10 03/20/16 17:31 FiO2 40 % 03/20/16 17:31 Sodium 141 mmol/L (137-145) 03/21/16 02:32 Potassium 4.8 mmol/L (3.6-5.0) 03/21/16 02:32 Chloride 96.2 mmol/L (98-107) L 03/21/16 02:32 Carbon Dioxide 31 mmol/L (22-30) H 03/21/16 02:32 Anion Gap 19 mmol/L 03/21/16 02:32 BUN 33 mg/dL (9-20) H 03/21/16 02:32 Creatinine 1.2 mg/dL (0.8-1.5) 03/21/16 02:32 Estimated GFR 58 ml/min 03/21/16 02:32 BUN/Creatinine Ratio 27.50 % 03/21/16 02:32 Glucose 137 mg/dL (75-100) H 03/21/16 02:32 Lactic Acid 1.9 mmol/L (0.7-2.0) 03/20/16 16:29 Calcium 9.1 mg/dL (8.4-10.2) 03/21/16 02:32 Magnesium 1.7 mg/dL (1.7-2.3) 03/20/16 14:48 Total Bilirubin 0.7 mg/dL (0.1-1.2) 03/20/16 14:48 Direct Bilirubin 0.3 mg/dL (0-0.2) H 03/20/16 14:48 Indirect Bilirubin 0.4 mg/dL 03/20/16 14:48 AST 20 units/L (5-40) 03/20/16 14:48 ALT 22 units/L (7-56) 03/20/16 14:48 Alkaline Phosphatase 63 units/L (35-129) 03/20/16 14:48 Total Creatine Kinase 25 units/L (55-170) L 03/21/16 02:32 CK-MB (CK-2) 2.3 ng/mL (0.0-4.0) 03/21/16 02:32 CK-MB (CK-2) Rel Index 9.2 (0-4) H 03/21/16 02:32 Troponin T < 0.010 ng/mL (0.00-0.029) 03/21/16 02:32 NT-Pro-B Natriuret Pep 38156 pg/mL (0-900) H 03/20/16 14:48 Total Protein 6.4 g/dL (6.3-8.2) 03/20/16 14:48 Albumin 3.4 g/dL (3.9-5) L 03/20/16 14:48 Albumin/Globulin Ratio 1.1 % 03/20/16 14:48 TSH 0.713 mlU/mL (0.270-4.200) 03/20/16 14:48 Free T4 1.45 ng/dL (0.76-1.46) 03/20/16 14:48 Digoxin < 0.2 ng/mL (0.9-2.0) L 03/20/16 16:29
--- NOTE | 2016-03-21 09:45 | Consultation ---
History of Present Illness Consult date: 03/21/16 Requesting physician: PARVIZ PHAN Consult reason: atrial fibrillation History of present illness: The patient is a 80 year old male who is followed by Dr. Pisano in the office with a history of paroxysmal atrial fibrillation, hypertension, hyperlipidemia who presented with complaints of progressive shortness of breath. He denies any chest pain or palpitations. EKG in the ER showed atrial fibrillation with RVR. Troponin negative x 3. BNP 71938. INR 5.97, WBC 20.1. ABG showed ph of 7.395 with a pCO2 of 57.1. Echo done 09/2014 showed EF 55-60%. Past History Past Medical History: atrial fib (paroxysmal), hypertension, hyperlipidemia Past Surgical History: hernia repair Social history: full code. denies: smoking, alcohol abuse, prescription drug abuse, IV drug use Family history: no significant family history Medications and Allergies Allergies Allergy/AdvReac Type Severity Reaction Status Date / Time No Known Allergies Allergy Verified 03/09/16 01:28 Home Medications Medication Instructions Recorded Confirmed Last Taken Type Simvastatin [Zocor TAB] 20 mg PO QHS 03/08/16 03/20/16 03/19/16 History Warfarin [Coumadin] 2.5 mg PO QDAY 03/08/16 03/20/16 03/19/16 History ALBUTEROL Inhaler [ProAir HFA 2 puff IH QID PRN #1 inhalation 03/11/16 03/20/16 03/19/16 Rx Inhaler] Cinacalcet [Sensipar] 30 mg PO QDAY 03/20/16 03/20/16 03/19/16 History Sotalol HCl [Sotalol] 120 mg PO BID 03/20/16 03/20/16 03/20/16 History Active Meds: Active Medications Acetaminophen (Tylenol) 650 mg PO Q6H PRN PRN Reason: Non Cardiac Pain or Temp>100.5 Norepinephrine (Levophed Drip 4 Mg/Ns 250 Ml) 4 mg in 250 mls @ 7.5 mls/hr IV TITR MODESTA; 2 MCG/MIN PRN Reason: Protocol Last Admin: 03/20/16 18:03 Dose: 7.5 mls/hr Ipratropium Paxton (Atrovent) 0.5 mg IH QIDRT MODESTA Last Admin: 03/20/16 18:01 Dose: Not Given Methylprednisolone Sodium Succinate (Solu-Medrol) 80 mg IV Q8H [facility] Last Admin: 03/21/16 00:58 Dose: 80 mg Pantoprazole Sodium (Protonix) 40 mg IV QDAY [facility] Phytonadione (Vitamin K (Adult Only)) 5 mg SUB-Q ONCE ONE Stop: 03/21/16 09:19 Simvastatin (Zocor) 20 mg PO QHS [facility] Last Admin: 03/20/16 23:50 Dose: Not Given Review of Systems Constitutional: no fever, no chills Ears, nose, mouth and throat: no nasal congestion, no nasal discharge, no sinus pressure Cardiovascular: shortness of breath, dyspnea on exertion, no chest pain, no palpitations Respiratory: shortness of breath, dyspnea on exertion Gastrointestinal: no abdominal pain, no nausea, no vomiting, no diarrhea Genitourinary Male: no dysuria, no hematuria Musculoskeletal: no neck stiffness, no neck pain, no myalgias Integumentary: no rash, no pruritis Neurological: no parathesias, no numbness, no tingling, no headaches Endocrine: no cold intolerance, no heat intolerance Hematologic/Lymphatic: no easy bruising, no easy bleeding Allergic/Immunologic: no urticaria, no wheezing Physical Examination Last Vital Signs Temp 97.3 F L 03/21/16 12:00 Pulse 58 L 03/21/16 06:01 Resp 14 03/21/16 06:01 BP 149/71 03/21/16 06:01 Pulse Ox 100 03/21/16 06:01 General appearance: no acute distress (on bipap) HEENT: Positive: Normocephaly, Mucus Membranes Moist Neck: Positive: neck supple, trachea midline Cardiac: Positive: Reg Rate and Rhythm, S1/S2 Lungs: Positive: Decreased Breath Sounds Neuro: Positive: Grossly Intact Abdomen: Positive: Soft, Active Bowel Sounds. Negative: Tender Skin: Positive: Clear. Negative: Rash Extremities: Present: normal. Absent: edema Results 03/21/16 02:32 03/21/16 02:32 Cardiac Enzymes 03/20/16 03/21/16 Range/Units 18:25 02:32 CK-MB (CK-2) 2.4 2.3 (0.0-4.0) ng/mL Coagulation 03/21/16 Range/Units 07:41 PT 84.6 H (12.2-14.9) Sec. INR 10.46 H* (0.87-1.13) CBC 03/21/16 Range/Units 02:32 WBC 14.8 H (4.5-11.0) K/mm3 RBC 4.32 (3.65-5.03) M/mm3 Hgb 13.6 (11.8-15.2) gm/dl Hct 42.1 (35.5-45.6) % Plt Count 212 (140-440) K/mm3 Comprehensive Metabolic Panel 03/21/16 Range/Units 02:32 Sodium 141 (137-145) mmol/L Potassium 4.8 (3.6-5.0) mmol/L Chloride 96.2 L (98-107) mmol/L Carbon Dioxide 31 H (22-30) mmol/L BUN 33 H (9-20) mg/dL Creatinine 1.2 (0.8-1.5) mg/dL Glucose 137 H (75-100) mg/dL Calcium 9.1 (8.4-10.2) mg/dL - Imaging and Cardiology Echo: pending EKG: image reviewed (09/2014: EF 55-60%) EKG interpretations - Telemetry EKG Rhythm: Sinus Rhythm - EKG Supraventricular dysrhythmia: atrial fibrillation Assessment and Plan Acute respiratory failure per pulmonary Hypotension-->resolved monitor BP Paroxysmal atrial fibrillation-->currently sinus rhythm resume sotalol 120mg BID coumadin on hold due to supratherapeutic INR Echo 09/2014: EF 55-60%, repeat pending Coumadin coagulopathy Vit. K 5mg x 1, will monitor INR closely no signs of bleeding noted Leukocytosis Hypertension Hyperlipidemia The patient has been seen in conjunction with Dr. Sr who agrees with the assessment and plan of care. Thank you Dr. Phan for allowing us to participate in the care of this patient.
[2016-03-21] MEDS: ATROVENT IH SCH ×4 (10:02→21:06)
[2016-03-21] MEDS: PROTONIX IV SCH (10:03)
[2016-03-21] MEDS ORDERED: VITAMIN K (ADULT ONLY) SUB-Q ONE (10:30)
[2016-03-21] MEDS ORDERED: APRESOLINE IV PRN (11:04)
--- NOTE | 2016-03-21 11:34 | Consultation ---
History of Present Illness Consult date: 03/21/16 Requesting physician: FELIZ ORELLANA Reason for consult: other (acute respiratory failure) History of present illness: 80 y/o male with chronic afib admitted to the ICU secondary to hypotension requiring vasopressor therapy. Per chart, patient was in afib with RVR on admission and cardizem push was attempted but no success. Apparently patient is under rate control now. Not on home dose of sotalol. BP is elevated. Work of breathing also appears to be increased. Was on bipap therapy last nigh and taken off earlier this am but using accessory muscles currently and not moving much air. Sats are ok. Past History Past Medical History: atrial fib, COPD, other (as hpi) Past Surgical History: hernia repair Social history: full code. denies: smoking, alcohol abuse, prescription drug abuse, IV drug use Family history: no significant family history Medications and Allergies Allergies Allergy/AdvReac Type Severity Reaction Status Date / Time No Known Allergies Allergy Verified 03/09/16 01:28 Home Medications Medication Instructions Recorded Confirmed Last Taken Type Simvastatin [Zocor TAB] 20 mg PO QHS 03/08/16 03/20/16 03/19/16 History Warfarin [Coumadin] 2.5 mg PO QDAY 03/08/16 03/20/16 03/19/16 History ALBUTEROL Inhaler [ProAir HFA 2 puff IH QID PRN #1 inhalation 03/11/16 03/20/16 03/19/16 Rx Inhaler] Cinacalcet [Sensipar] 30 mg PO QDAY 03/20/16 03/20/16 03/19/16 History Sotalol HCl [Sotalol] 120 mg PO BID 03/20/16 03/20/16 03/20/16 History Active Meds: Active Medications Acetaminophen (Tylenol) 650 mg PO Q6H PRN PRN Reason: Non Cardiac Pain or Temp>100.5 Arformoterol Tartrate (Brovana Nebu) 15 mcg IH Q12HRT [facility] Budesonide (Pulmicort) 0.5 mg IH Q12HRT MODESTA Hydralazine HCl (Apresoline) 10 mg IV Q6HR PRN PRN Reason: SBP greater than 160 Norepinephrine (Levophed Drip 4 Mg/Ns 250 Ml) 4 mg in 250 mls @ 7.5 mls/hr IV TITR MODESTA; 2 MCG/MIN PRN Reason: Protocol Last Admin: 03/20/16 18:03 Dose: 7.5 mls/hr Ipratropium [place] (Atrovent) 0.5 mg IH QIDRT [facility] Last Admin: 03/21/16 10:02 Dose: 0.5 mg Methylprednisolone Sodium Succinate (Solu-Medrol) 80 mg IV Q8H [facility] Last Admin: 03/21/16 10:03 Dose: 80 mg Pantoprazole Sodium (Protonix) 40 mg IV QDAY [facility] Last Admin: 03/21/16 10:03 Dose: 40 mg Simvastatin (Zocor) 20 mg PO QHS [facility] Last Admin: 03/20/16 23:50 Dose: Not Given Review of Systems All systems: negative Physical Examination Vital signs: Vital Signs Pulse Ox 95 03/20/16 13:06 General appearance: appears uncomfortable, other (mild distress, very hard of hearing) Eyes: non-icteric ENT: oropharynx dry Neck: supple Effort: mildly labored Ascultation: Bilateral: diminished breath sounds Percussion: Bilateral: not dull Cardiovascular: irregular rhythm (but rate controlled) Gastrointestinal: normoactive bowel sounds, soft, non-tender Extremities: no edema normal mental status Results - Laboratory Findings CBC and BMP: 03/21/16 02:32 03/21/16 02:32 ABG POC ABG pH 7.395 (7.35-7.45) 03/20/16 17:31 POC ABG pCO2 57.1 (35-45) H 03/20/16 17:31 POC ABG pO2 85 (80-105) 03/20/16 17:31 POC ABG HCO3 34.9 03/20/16 17:31 POC ABG Total CO2 37 03/20/16 17:31 POC ABG O2 Sat 96 03/20/16 17:31 PT/INR, D-dimer PT 84.6 Sec. (12.2-14.9) H 03/21/16 07:41 INR 10.46 (0.87-1.13) H* 03/21/16 07:41 Abnormal lab findings: Abnormal Labs 03/20/16 03/20/16 03/20/16 16:15 16:29 17:31 WBC MCV PT INR POC ABG pH 7.317 L POC ABG pCO2 70.6 H 57.1 H POC ABG pO2 53 L Chloride Carbon Dioxide BUN Glucose Total Creatine Kinase CK-MB (CK-2) Rel Index Digoxin < 0.2 L 03/20/16 03/21/16 03/21/16 18:25 02:32 02:32 WBC 14.8 H MCV 97 H PT INR POC ABG pH POC ABG pCO2 POC ABG pO2 Chloride Carbon Dioxide BUN Glucose Total Creatine Kinase 33 L 25 L CK-MB (CK-2) Rel Index 7.2 H 9.2 H Digoxin 03/21/16 03/21/16 02:32 07:41 WBC MCV PT 84.6 H INR 10.46 H* POC ABG pH POC ABG pCO2 POC ABG pO2 Chloride 96.2 L Carbon Dioxide 31 H BUN 33 H Glucose 137 H Total Creatine Kinase CK-MB (CK-2) Rel Index Digoxin - Diagnostic Findings Chest x-ray: image reviewed (hyperinflation with flattened diaphragams. consistent with a diagnosis of COPD) Assessment and Plan 80 y/o male with acute respiratory failure, requiring bipap therapy, afib rate controlled, with coagulopathy and likely COPD exacerbation. 1. Restarted back on bipap 2. Added Pulmicort and Brovana 3. Correction of INR with vitamin K, repeat at 16:00 4. Change atrovent to duoneb therapy 5. Need to restart home meds. Sotalol is available on formulary here 6. Continue ICU monitoring given breathing pattern
[2016-03-21] MEDS: BROVANA NEBU IH SCH ×2 (12:44→21:07)
[2016-03-21] MEDS: PULMICORT IH SCH ×2 (12:45→21:07)
[2016-03-21 16:38] LABS: INR 11.99 (0.87-1.13)
[2016-03-21] MEDS ORDERED: ASPIRIN PR ONE (18:25)
[2016-03-21] MEDS: BETAPACE PO SCH (21:23)
[2016-03-21] MEDS: ZOCOR PO SCH (21:25)
[2016-03-22 06:34] LABS: INR 6.35 (0.87-1.13)
--- NOTE | 2016-03-22 08:33 | Progress Note ---
Assessment and Plan Acute respiratory failure per pulmonary Hypotension-->resolved Paroxysmal atrial fibrillation-->currently sinus rhythm continue sotalol 120mg BID coumadin on hold due to supratherapeutic INR Echo 09/2014: EF 55-60%, repeat pending Coumadin coagulopathy Vit. K 5mg x 1 given on 03/21/16--> will monitor INR closely no signs of bleeding noted Leukocytosis Hypertension BP elevated add norvasc 5mg daily Hyperlipidemia The patient has been seen in conjunction with Dr. Valderrama who agrees with the assessment and plan of care. Subjective Date of service: 03/22/16 Principal diagnosis: acute respiratory failure Interval history: The patient is resting in bed. No new complaints. On bipap. Sinus rhythm on the monitor. Objective Last Vital Signs Temp 97.1 F L 03/22/16 07:59 Pulse 62 03/22/16 07:51 Resp 11 L 03/22/16 07:51 BP 143/73 03/22/16 07:51 Pulse Ox 98 03/22/16 08:00 - Physical Examination General: No Apparent Distress (on bipap) HEENT: Positive: Normocephaly, Mucus Membranes Moist Neck: Positive: neck supple, trachea midline Cardiac: Positive: Reg Rate and Rhythm, S1/S2 Lungs: Positive: Decreased Breath Sounds Neuro: Positive: Grossly Intact Abdomen: Positive: Soft, Active Bowel Sounds. Negative: Tender Skin: Positive: Clear. Negative: Rash Extremities: Present: normal. Absent: edema - Labs and Meds Coagulation 03/21/16 03/21/16 03/22/16 Range/Units 07:41 16:00 04:39 PT 94.1 H 56.8 H (12.2-14.9) Sec. INR 10.46 H* 11.99 H* 6.35 H* (0.87-1.13) - Imaging and Cardiology EKG: image reviewed (09/2014: EF 55-60%) Echo: pending - Telemetry EKG Rhythm: Sinus Rhythm
--- NOTE | 2016-03-22 08:51 | Progress Note ---
Assessment and Plan Assessment and plan: Acute respiratory failure secondary to COPD exacerbation and rapid atrial fibrillation. He is still on BiPAP. Pulmonology following. Atrial fibrillation with rapid ventricular response. He was given amiodarone emergency department. Cardiology following. he is now rate controlled Hypotension. Resolved, off Levophed this has now being discontinued since blood pressure is now stable. Hypertension. Coumadin toxicity, Coagulopathy. Coumadin was 5.9 , went up to 10.4 yesterday so given Vitamin K iv. His INR is now 6.35. No signs of bleeding. Repeat in am.. COPD exacerbation. Continue Solu-Medrol and Nebulizers. Pulmonology following. Protein energy malnutrition. Dietary consulted. DVT prophylaxis on Coumadin Full CODE STATUS History Interval history: Less shortness of breath, No chest pain, still on BIPAP Hospitalist Physical - Physical exam Narrative exam: Gen appearance: not in acute distress, cachetic, on BIPAP-mask on HEENT: Normocephalic, atraumatic Neck : supple, no JVD Lungs: Decreased breath sounds bilaterally, lungs clear, no crackles, no wheezing . Heart : S1 and S2 irregular, no murmurs rubs or gallop, Abdomen: soft, nontender, nondistended, normal bowel sounds Extremities: No edema, clubbing or cyanosis, Neuro : Awake alert oriented 3, no focal signs Psych :appropriate mood - Constitutional Vitals: Temp Pulse Resp BP Pulse Ox 97.1 F L 62 11 L 143/73 98 03/22/16 07:59 03/22/16 07:51 03/22/16 07:51 03/22/16 07:51 03/22/16 08:00 General appearance: Present: no acute distress (on bipap) Results - Labs CBC & Chem 7: 03/21/16 02:32 03/21/16 02:32 Labs: Laboratory Last Values WBC 14.8 K/mm3 (4.5-11.0) H 03/21/16 02:32 RBC 4.32 M/mm3 (3.65-5.03) 03/21/16 02:32 Hgb 13.6 gm/dl (11.8-15.2) 03/21/16 02:32 Hct 42.1 % (35.5-45.6) 03/21/16 02:32 MCV 97 fl (84-94) H 03/21/16 02:32 MCH 32 pg (28-32) 03/21/16 02:32 MCHC 32 % (32-34) 03/21/16 02:32 RDW 15.0 % (13.2-15.2) 03/21/16 02:32 Plt Count 212 K/mm3 (140-440) 03/21/16 02:32 Add Manual Diff Complete 03/20/16 14:48 Total Counted 100 03/20/16 14:48 Seg Neuts % (Manual) 97.0 % (40.0-70.0) H 03/20/16 14:48 Band Neutrophils % 0 % 03/20/16 14:48 Lymphocytes % (Manual) 0 % (13.4-35.0) L 03/20/16 14:48 Reactive Lymphs % (Man) 0 % 03/20/16 14:48 Monocytes % (Manual) 3.0 % (0.0-7.3) 03/20/16 14:48 Eosinophils % (Manual) 0 % (0.0-4.3) 03/20/16 14:48 Basophils % (Manual) 0 % (0.0-1.8) 03/20/16 14:48 Metamyelocytes % 0 % 03/20/16 14:48 Myelocytes % 0 % 03/20/16 14:48 Promyelocytes % 0 % 03/20/16 14:48 Blast Cells % 0 % 03/20/16 14:48 Nucleated RBC % Not Reportable 03/20/16 14:48 Seg Neutrophils # Man 19.5 K/mm3 (1.8-7.7) H 03/20/16 14:48 Band Neutrophils # 0.0 K/mm3 03/20/16 14:48 Lymphocytes # (Manual) 0.0 K/mm3 (1.2-5.4) L 03/20/16 14:48 Abs React Lymphs (Man) 0.0 K/mm3 03/20/16 14:48 Monocytes # (Manual) 0.6 K/mm3 (0.0-0.8) 03/20/16 14:48 Eosinophils # (Manual) 0.0 K/mm3 (0.0-0.4) 03/20/16 14:48 Basophils # (Manual) 0.0 K/mm3 (0.0-0.1) 03/20/16 14:48 Metamyelocytes # 0.0 K/mm3 03/20/16 14:48 Myelocytes # 0.0 K/mm3 03/20/16 14:48 Promyelocytes # 0.0 K/mm3 03/20/16 14:48 Blast Cells # 0.0 K/mm3 03/20/16 14:48 WBC Morphology Not Reportable 03/20/16 14:48 Hypersegmented Neuts Not Reportable 03/20/16 14:48 Hyposegmented Neuts Not Reportable 03/20/16 14:48 Hypogranular Neuts Not Reportable 03/20/16 14:48 Smudge Cells Not Reportable 03/20/16 14:48 Toxic Granulation Not Reportable 03/20/16 14:48 Toxic Vacuolation Not Reportable 03/20/16 14:48 Dohle Bodies Not Reportable 03/20/16 14:48 Pelger-Huet Anomaly Not Reportable 03/20/16 14:48 Justino Rods Not Reportable 03/20/16 14:48 Platelet Estimate Appears normal 03/20/16 14:48 Clumped Platelets Not Reportable 03/20/16 14:48 Plt Clumps, EDTA Not Reportable 03/20/16 14:48 Large Platelets Not Reportable 03/20/16 14:48 Giant Platelets Not Reportable 03/20/16 14:48 Platelet Satelliting Not Reportable 03/20/16 14:48 Plt Morphology Comment Not Reportable 03/20/16 14:48 RBC Morphology Not Reportable 03/20/16 14:48 Dimorphic RBCs Not Reportable 03/20/16 14:48 Polychromasia Not Reportable 03/20/16 14:48 Hypochromasia Not Reportable 03/20/16 14:48 Poikilocytosis Not Reportable 03/20/16 14:48 Anisocytosis 1+ 03/20/16 14:48 Microcytosis Not Reportable 03/20/16 14:48 Macrocytosis Not Reportable 03/20/16 14:48 Spherocytes Not Reportable 03/20/16 14:48 Pappenheimer Bodies Not Reportable 03/20/16 14:48 Sickle Cells Not Reportable 03/20/16 14:48 Target Cells Not Reportable 03/20/16 14:48 Tear Drop Cells Not Reportable 03/20/16 14:48 Ovalocytes Not Reportable 03/20/16 14:48 Helmet Cells Not Reportable 03/20/16 14:48 [place] Bodies Not Reportable 03/20/16 14:48 Josephine Rings Not Reportable 03/20/16 14:48 [place] Cells Not Reportable 03/20/16 14:48 Bite Cells Not Reportable 03/20/16 14:48 Crenated Cell Not Reportable 03/20/16 14:48 Elliptocytes Not Reportable 03/20/16 14:48 Acanthocytes (Spur) Not Reportable 03/20/16 14:48 Rouleaux Not Reportable 03/20/16 14:48 Hemoglobin C Crystals Not Reportable 03/20/16 14:48 Schistocytes Not Reportable 03/20/16 14:48 Malaria parasites Not Reportable 03/20/16 14:48 Tigre Bodies Not Reportable 03/20/16 14:48 Hem Pathologist Commnt No 03/20/16 14:48 PT 56.8 Sec. (12.2-14.9) H 03/22/16 04:39 INR 6.35 (0.87-1.13) H* 03/22/16 04:39 APTT < 20.0 Sec. (24.2-36.6) L 03/20/16 14:48 POC ABG pH 7.395 (7.35-7.45) 03/20/16 17:31 POC ABG pCO2 57.1 (35-45) H 03/20/16 17:31 POC ABG pO2 85 (80-105) 03/20/16 17:31 POC ABG HCO3 34.9 03/20/16 17:31 POC ABG Total CO2 37 03/20/16 17:31 POC ABG O2 Sat 96 03/20/16 17:31 POC ABG Base Excess 10 03/20/16 17:31 FiO2 40 % 03/20/16 17:31 Sodium 141 mmol/L (137-145) 03/21/16 02:32 Potassium 4.8 mmol/L (3.6-5.0) 03/21/16 02:32 Chloride 96.2 mmol/L (98-107) L 03/21/16 02:32 Carbon Dioxide 31 mmol/L (22-30) H 03/21/16 02:32 Anion Gap 19 mmol/L 03/21/16 02:32 BUN 33 mg/dL (9-20) H 03/21/16 02:32 Creatinine 1.2 mg/dL (0.8-1.5) 03/21/16 02:32 Estimated GFR 58 ml/min 03/21/16 02:32 BUN/Creatinine Ratio 27.50 % 03/21/16 02:32 Glucose 137 mg/dL (75-100) H 03/21/16 02:32 Lactic Acid 1.9 mmol/L (0.7-2.0) 03/20/16 16:29 Calcium 9.1 mg/dL (8.4-10.2) 03/21/16 02:32 Magnesium 1.7 mg/dL (1.7-2.3) 03/20/16 14:48 Total Bilirubin 0.7 mg/dL (0.1-1.2) 03/20/16 14:48 Direct Bilirubin 0.3 mg/dL (0-0.2) H 03/20/16 14:48 Indirect Bilirubin 0.4 mg/dL 03/20/16 14:48 AST 20 units/L (5-40) 03/20/16 14:48 ALT 22 units/L (7-56) 03/20/16 14:48 Alkaline Phosphatase 63 units/L (35-129) 03/20/16 14:48 Total Creatine Kinase 25 units/L (55-170) L 03/21/16 02:32 CK-MB (CK-2) 2.3 ng/mL (0.0-4.0) 03/21/16 02:32 CK-MB (CK-2) Rel Index 9.2 (0-4) H 03/21/16 02:32 Troponin T < 0.010 ng/mL (0.00-0.029) 03/21/16 02:32 NT-Pro-B Natriuret Pep 43120 pg/mL (0-900) H 03/20/16 14:48 Total Protein 6.4 g/dL (6.3-8.2) 03/20/16 14:48 Albumin 3.4 g/dL (3.9-5) L 03/20/16 14:48 Albumin/Globulin Ratio 1.1 % 03/20/16 14:48 TSH 0.713 mlU/mL (0.270-4.200) 03/20/16 14:48 Free T4 1.45 ng/dL (0.76-1.46) 03/20/16 14:48 Digoxin < 0.2 ng/mL (0.9-2.0) L 03/20/16 16:29
[2016-03-22] MEDS ORDERED: LEVOPHED DRIP 4 MG/NS 250 ML 4 MG/250 ML BAG IV SCH (09:00)
[2016-03-22] MEDS ORDERED: LEVOPHED IV SCH (09:15)
[2016-03-22] MEDS ORDERED: NACL 0.9% IV SCH (09:15)
[2016-03-22] MEDS: NORVASC PO SCH (10:28)
[2016-03-22] MEDS: BETAPACE PO SCH ×2 (10:28→23:21)
[2016-03-22] MEDS: PROTONIX IV SCH (10:31)
[2016-03-22] MEDS: PULMICORT IH SCH ×2 (11:02→21:05)
[2016-03-22] MEDS: ATROVENT IH SCH ×4 (11:02→21:05)
[2016-03-22] MEDS: BROVANA NEBU IH SCH ×2 (11:02→21:05)
[2016-03-22] MEDS ORDERED: LASIX IV ONE (11:50)
--- NOTE | 2016-03-22 11:58 | Progress Note ---
Assessment and Plan 80 y/o male with acute respiratory failure, requiring bipap therapy, afib rate controlled, with coagulopathy and likely COPD exacerbation. 1. Will give lasix 20mg IV x1 today. 2. Continue Pulmicort and Brovana 3. Repeat INR, may need more vitamin K 4. Continue duoneb therapy 5. Back on sotalol 6. Will change steroids to 60q6 7. Given that patient, does not want to attempt a break from bipap therapy and overall clinically stable, will ask for transfer to telemetry floor. 8. Patient has not eaten but is stable to do so if he will be willing to come off bipap to eat. Subjective Date of service: 03/22/16 Principal diagnosis: acute respiratory failure Interval history: Work of breathing has improved today but patient does not want to come off bipap. Awake and alert. Wearing the new full face mask for bipap therapy. Objective Vital Signs - 12hr 03/22/16 03/22/16 03/22/16 00:00 00:02 00:10 Temperature Pulse Rate 69 65 66 Pulse Rate [ Bilateral Upper Lobe] Respiratory 20 20 19 Rate Respiratory Rate [Bilateral Upper Lobe] Blood Pressure 129/60 129/60 129/60 O2 Sat by Pulse 99 99 99 Oximetry 03/22/16 03/22/16 03/22/16 00:20 00:25 00:30 Temperature 97.9 F Pulse Rate 68 65 63 Pulse Rate [ Bilateral Upper Lobe] Respiratory 19 12 13 Rate Respiratory Rate [Bilateral Upper Lobe] Blood Pressure 142/74 154/65 127/67 O2 Sat by Pulse 99 100 98 Oximetry 03/22/16 03/22/16 03/22/16 00:40 00:50 01:00 Temperature Pulse Rate 62 65 63 Pulse Rate [ Bilateral Upper Lobe] Respiratory 12 19 11 L Rate Respiratory Rate [Bilateral Upper Lobe] Blood Pressure 127/67 102/54 117/64 O2 Sat by Pulse 99 97 99 Oximetry 03/22/16 03/22/16 03/22/16 01:10 01:20 01:30 Temperature Pulse Rate 64 64 65 Pulse Rate [ Bilateral Upper Lobe] Respiratory 12 12 12 Rate Respiratory Rate [Bilateral Upper Lobe] Blood Pressure 117/64 126/57 154/65 O2 Sat by Pulse 98 98 99 Oximetry 03/22/16 03/22/16 03/22/16 01:40 01:50 02:00 Temperature Pulse Rate 69 63 63 Pulse Rate [ Bilateral Upper Lobe] Respiratory 13 11 L 19 Rate Respiratory Rate [Bilateral Upper Lobe] Blood Pressure 154/65 130/65 131/61 O2 Sat by Pulse 99 98 96 Oximetry 03/22/16 03/22/16 03/22/16 02:10 02:20 02:30 Temperature Pulse Rate 77 71 70 Pulse Rate [ Bilateral Upper Lobe] Respiratory 20 22 22 Rate Respiratory Rate [Bilateral Upper Lobe] Blood Pressure 131/61 131/61 180/71 O2 Sat by Pulse 98 95 99 Oximetry 03/22/16 03/22/16 03/22/16 02:40 02:50 03:00 Temperature Pulse Rate 68 68 80 Pulse Rate [ Bilateral Upper Lobe] Respiratory 23 22 23 Rate Respiratory Rate [Bilateral Upper Lobe] Blood Pressure 180/71 198/91 141/71 O2 Sat by Pulse 100 100 100 Oximetry 03/22/16 03/22/16 03/22/16 03:03 03:11 03:21 Temperature Pulse Rate 86 99 H Pulse Rate [ Bilateral Upper Lobe] Respiratory 20 21 Rate Respiratory Rate [Bilateral Upper Lobe] Blood Pressure 160/131 O2 Sat by Pulse 99 100 100 Oximetry 03/22/16 03/22/16 03/22/16 03:30 03:40 03:41 Temperature Pulse Rate 94 H 72 85 Pulse Rate [ Bilateral Upper Lobe] Respiratory 22 21 22 Rate Respiratory Rate [Bilateral Upper Lobe] Blood Pressure 156/122 122/62 156/122 O2 Sat by Pulse 100 96 100 Oximetry 03/22/16 03/22/16 03/22/16 03:51 04:00 04:10 Temperature 97.9 F Pulse Rate 76 66 Pulse Rate [ Bilateral Upper Lobe] Respiratory 20 15 Rate Respiratory Rate [Bilateral Upper Lobe] Blood Pressure 136/77 124/60 O2 Sat by Pulse 100 98 Oximetry 03/22/16 03/22/16 03/22/16 04:11 04:21 04:30 Temperature Pulse Rate 65 64 63 Pulse Rate [ Bilateral Upper Lobe] Respiratory 12 16 13 Rate Respiratory Rate [Bilateral Upper Lobe] Blood Pressure 124/60 122/59 122/62 O2 Sat by Pulse 98 98 99 Oximetry 03/22/16 03/22/16 03/22/16 04:41 04:51 05:01 Temperature Pulse Rate 64 62 63 Pulse Rate [ Bilateral Upper Lobe] Respiratory 19 12 14 Rate Respiratory Rate [Bilateral Upper Lobe] Blood Pressure 122/62 120/72 92/46 O2 Sat by Pulse 98 100 94 Oximetry 03/22/16 03/22/16 03/22/16 05:11 05:21 05:30 Temperature Pulse Rate 64 61 64 Pulse Rate [ Bilateral Upper Lobe] Respiratory 13 13 15 Rate Respiratory Rate [Bilateral Upper Lobe] Blood Pressure 92/46 108/71 103/70 O2 Sat by Pulse 98 99 98 Oximetry 03/22/16 03/22/16 03/22/16 05:41 05:51 06:01 Temperature Pulse Rate 64 62 57 L Pulse Rate [ Bilateral Upper Lobe] Respiratory 12 11 L 12 Rate Respiratory Rate [Bilateral Upper Lobe] Blood Pressure 103/70 118/59 105/63 O2 Sat by Pulse 99 99 94 Oximetry 03/22/16 03/22/16 03/22/16 06:11 06:20 06:21 Temperature Pulse Rate 61 71 64 Pulse Rate [ Bilateral Upper Lobe] Respiratory 13 20 Rate Respiratory Rate [Bilateral Upper Lobe] Blood Pressure 105/63 106/85 O2 Sat by Pulse 100 100 99 Oximetry 03/22/16 03/22/16 03/22/16 06:31 06:41 06:51 Temperature Pulse Rate 65 78 70 Pulse Rate [ Bilateral Upper Lobe] Respiratory 16 20 20 Rate Respiratory Rate [Bilateral Upper Lobe] Blood Pressure 163/85 163/85 168/108 O2 Sat by Pulse 97 100 100 Oximetry 03/22/16 03/22/16 03/22/16 07:01 07:11 07:21 Temperature Pulse Rate 70 84 71 Pulse Rate [ Bilateral Upper Lobe] Respiratory 18 22 22 Rate Respiratory Rate [Bilateral Upper Lobe] Blood Pressure 144/75 144/75 135/88 O2 Sat by Pulse 100 94 95 Oximetry 03/22/16 03/22/16 03/22/16 07:30 07:41 07:51 Temperature Pulse Rate 65 62 62 Pulse Rate [ Bilateral Upper Lobe] Respiratory 17 14 11 L Rate Respiratory Rate [Bilateral Upper Lobe] Blood Pressure 155/80 155/80 143/73 O2 Sat by Pulse 100 100 100 Oximetry 03/22/16 03/22/16 03/22/16 07:59 08:00 11:03 Temperature 97.1 F L Pulse Rate 67 Pulse Rate [ 74 Bilateral Upper Lobe] Respiratory 22 Rate Respiratory 20 Rate [Bilateral Upper Lobe] Blood Pressure 176/58 O2 Sat by Pulse 98 99 Oximetry Constitutional: appears uncomfortable, other (mild distress, very hard of hearing) Eyes: non-icteric ENT: oropharynx dry Neck: supple Effort: mildly labored Ascultation: Bilateral: diminished breath sounds Percussion: Bilateral: not dull Cardiovascular: irregular rhythm (but rate controlled) Gastrointestinal: normoactive bowel sounds, soft, non-tender Extremities: no edema Neurologic: normal mental status CBC and BMP: 03/21/16 02:32 03/21/16 02:32 ABG, PT/INR, D-dimer: ABG POC ABG pH 7.395 (7.35-7.45) 03/20/16 17:31 POC ABG pCO2 57.1 (35-45) H 03/20/16 17:31 POC ABG pO2 85 (80-105) 03/20/16 17:31 POC ABG HCO3 34.9 03/20/16 17:31 POC ABG Total CO2 37 03/20/16 17:31 POC ABG O2 Sat 96 03/20/16 17:31 PT/INR, D-dimer PT 56.8 Sec. (12.2-14.9) H 03/22/16 04:39 INR 6.35 (0.87-1.13) H* 03/22/16 04:39 Abnormal lab findings: Abnormal Labs 03/20/16 03/20/16 03/20/16 16:15 16:29 17:31 WBC MCV PT INR POC ABG pH 7.317 L POC ABG pCO2 70.6 H 57.1 H POC ABG pO2 53 L Chloride Carbon Dioxide BUN Glucose Total Creatine Kinase CK-MB (CK-2) Rel Index Digoxin < 0.2 L 03/20/16 03/21/16 03/21/16 18:25 02:32 02:32 WBC 14.8 H MCV 97 H PT INR POC ABG pH POC ABG pCO2 POC ABG pO2 Chloride Carbon Dioxide BUN Glucose Total Creatine Kinase 33 L 25 L CK-MB (CK-2) Rel Index 7.2 H 9.2 H Digoxin 03/21/16 03/21/16 03/21/16 02:32 07:41 16:00 WBC MCV PT 84.6 H 94.1 H INR 10.46 H* 11.99 H* POC ABG pH POC ABG pCO2 POC ABG pO2 Chloride 96.2 L Carbon Dioxide 31 H BUN 33 H Glucose 137 H Total Creatine Kinase CK-MB (CK-2) Rel Index Digoxin 03/22/16 04:39 WBC MCV PT 56.8 H INR 6.35 H* POC ABG pH POC ABG pCO2 POC ABG pO2 Chloride Carbon Dioxide BUN Glucose Total Creatine Kinase CK-MB (CK-2) Rel Index Digoxin
[2016-03-22] MEDS: ZOCOR PO SCH (23:20)
[2016-03-23] MEDS: BROVANA NEBU IH SCH ×2 (07:39→21:40)
[2016-03-23] MEDS: PULMICORT IH SCH ×2 (07:39→21:41)
[2016-03-23] MEDS: ATROVENT IH SCH ×4 (07:40→21:41)
[2016-03-23 09:03] LABS: Hematocrit 39.4 % (35.5-45.6); Hemoglobin 12.8 gm/dl (11.8-15.2); Mean Corpuscular HGB Conc 32 % (32-34); Mean Corpuscular Hemoglobin 32 pg (28-32); Mean Corpuscular Volume 98 fl (84-94); Platelet Count 189 K/mm3 (140-440); Red Blood Count 4.02 M/mm3 (3.65-5.03); Red Cell Distribution Width 15.2 % (13.2-15.2)
[2016-03-23 09:17] LABS: White Blood Count 23.3 K/mm3 (4.5-11.0)
[2016-03-23 09:23] LABS: Chloride 105.5 mmol/L (98-107); Magnesium 1.9 mg/dL (1.7-2.3); Phosphorous 5.1 mg/dL (2.5-4.5); Potassium 5.1 mmol/L (3.6-5.0)
[2016-03-23 09:29] LABS: INR 2.17 (0.87-1.13)
[2016-03-23] MEDS ORDERED: PROTONIX PO SCH (10:00)
--- NOTE | 2016-03-23 10:49 | Progress Note ---
Assessment and Plan 80 y/o male with acute respiratory failure, requiring bipap therapy, afib rate controlled, with coagulopathy and likely COPD exacerbation. 1. Will give lasix 20mg IV x1 today. 2. Continue Pulmicort and Brovana 3. INR improved, continue to hold anticoagulation 4. Continue duoneb therapy 5. Continue sotalol 6. keep steroids at 60q6 7. Patient not eating and has insensible loses. Starting the D5W drip for that. The lasix is to help with overall fluid balance after resuscitation from being hypotensive on admission. Bump in BUN could be from lasix but also from steroids as well. Will continue to monitor, recommend checking chemistry in am. Subjective Date of service: 03/23/16 Principal diagnosis: acute respiratory failure Interval history: Much more awake and alert today. Still refuses to take bipap off. No family at bedside. Tolerated lasix yesterday but no has some hypernatremia and increase in bun. Objective Vital Signs - 12hr 03/23/16 03/23/16 03/23/16 00:00 01:46 06:00 Temperature 97.6 F Pulse Rate 65 Pulse Rate [ Bilateral Upper Lobe] Pulse Rate [ Left Radial] Pulse Rate [ 66 Right Dorsalis Pedis] Respiratory 24 Rate Respiratory Rate [Bilateral Upper Lobe] Blood Pressure [Left Arm] Blood Pressure 136/59 [Right Arm] O2 Sat by Pulse 100 95 Oximetry 03/23/16 03/23/16 03/23/16 06:13 07:42 07:43 Temperature 97.5 F L Pulse Rate 68 Pulse Rate [ 80 Bilateral Upper Lobe] Pulse Rate [ Left Radial] Pulse Rate [ 67 Right Dorsalis Pedis] Respiratory 21 20 Rate Respiratory 20 Rate [Bilateral Upper Lobe] Blood Pressure [Left Arm] Blood Pressure 113/55 [Right Arm] O2 Sat by Pulse 99 94 Oximetry 03/23/16 03/23/16 03/23/16 07:50 09:36 10:17 Temperature 97.6 F Pulse Rate Pulse Rate [ 84 Bilateral Upper Lobe] Pulse Rate [ 87 Left Radial] Pulse Rate [ Right Dorsalis Pedis] Respiratory 24 Rate Respiratory 20 Rate [Bilateral Upper Lobe] Blood Pressure 183/75 [Left Arm] Blood Pressure [Right Arm] O2 Sat by Pulse 94 95 Oximetry Constitutional: appears uncomfortable, other (mild distress, very hard of hearing) Eyes: non-icteric ENT: oropharynx dry Neck: supple Effort: mildly labored Ascultation: Bilateral: diminished breath sounds Percussion: Bilateral: not dull Cardiovascular: irregular rhythm (but rate controlled) Gastrointestinal: normoactive bowel sounds, soft, non-tender Extremities: no edema Neurologic: normal mental status CBC and BMP: 03/23/16 08:48 03/23/16 08:48 ABG, PT/INR, D-dimer: ABG POC ABG pH 7.395 (7.35-7.45) 03/20/16 17:31 POC ABG pCO2 57.1 (35-45) H 03/20/16 17:31 POC ABG pO2 85 (80-105) 03/20/16 17:31 POC ABG HCO3 34.9 03/20/16 17:31 POC ABG Total CO2 37 03/20/16 17:31 POC ABG O2 Sat 96 03/20/16 17:31 PT/INR, D-dimer PT 24.2 Sec. (12.2-14.9) H 03/23/16 08:48 INR 2.17 (0.87-1.13) H 03/23/16 08:48 Abnormal lab findings: Abnormal Labs 03/20/16 03/20/16 03/20/16 16:15 16:29 17:31 WBC MCV PT INR POC ABG pH 7.317 L POC ABG pCO2 70.6 H 57.1 H POC ABG pO2 53 L Sodium Potassium Chloride Carbon Dioxide BUN Glucose Phosphorus Total Creatine Kinase CK-MB (CK-2) Rel Index Digoxin < 0.2 L 03/20/16 03/21/16 03/21/16 18:25 02:32 02:32 WBC 14.8 H MCV 97 H PT INR POC ABG pH POC ABG pCO2 POC ABG pO2 Sodium Potassium Chloride Carbon Dioxide BUN Glucose Phosphorus Total Creatine Kinase 33 L 25 L CK-MB (CK-2) Rel Index 7.2 H 9.2 H Digoxin 03/21/16 03/21/16 03/21/16 02:32 07:41 16:00 WBC MCV PT 84.6 H 94.1 H INR 10.46 H* 11.99 H* POC ABG pH POC ABG pCO2 POC ABG pO2 Sodium Potassium Chloride 96.2 L Carbon Dioxide 31 H BUN 33 H Glucose 137 H Phosphorus Total Creatine Kinase CK-MB (CK-2) Rel Index Digoxin 03/22/16 03/23/16 03/23/16 04:39 08:48 08:48 WBC 23.3 H MCV 98 H PT 56.8 H 24.2 H INR 6.35 H* 2.17 H POC ABG pH POC ABG pCO2 POC ABG pO2 Sodium Potassium Chloride Carbon Dioxide BUN Glucose Phosphorus Total Creatine Kinase CK-MB (CK-2) Rel Index Digoxin 03/23/16 08:48 WBC MCV PT INR POC ABG pH POC ABG pCO2 POC ABG pO2 Sodium 149 H D Potassium 5.1 H Chloride Carbon Dioxide BUN 57 H Glucose 122 H Phosphorus 5.1 H Total Creatine Kinase CK-MB (CK-2) Rel Index Digoxin
[2016-03-23] MEDS ORDERED: D5W 1,000 ML IV SCH (11:00)
[2016-03-23] MEDS ORDERED: LASIX IV ONE (11:00)
[2016-03-23] MEDS: NORVASC PO SCH (11:23)
[2016-03-23] MEDS: BETAPACE PO SCH ×2 (11:23→23:24)
--- NOTE | 2016-03-23 14:33 | Progress Note ---
Assessment and Plan Acute respiratory failure/COPD per pulmonary Hypotension-->resolved Paroxysmal atrial fibrillation-->currently sinus rhythm continue sotalol 120mg BID supratherapeutic INR on admission, today 2.17 Echo 09/2014: EF 55-60%, repeat pending Coumadin coagulopathy Vit. K 5mg x 1 given on 03/21/16--> will monitor INR closely no signs of bleeding noted Leukocytosis Hypertension norvasc 5mg daily Hyperlipidemia Subjective Date of service: 03/23/16 Principal diagnosis: acute respiratory failure Interval history: Patient sitting up in bed with BiPAP Objective Vital Signs Temp Pulse Pulse Pulse Pulse Resp Resp 03/23/16 10:17 97.6 F 87 24 03/23/16 09:36 84 20 03/23/16 07:50 03/23/16 07:43 68 20 03/23/16 07:42 80 20 03/23/16 06:13 97.5 F L 67 21 03/23/16 06:00 65 03/23/16 01:46 97.6 F 66 24 03/23/16 00:00 03/22/16 22:00 68 03/22/16 21:59 97.4 F L 61 20 03/22/16 21:40 03/22/16 21:32 61 20 03/22/16 21:20 81 21 03/22/16 21:03 67 21 03/22/16 20:11 67 20 03/22/16 20:01 66 21 03/22/16 20:00 98.6 F 03/22/16 19:51 68 22 03/22/16 19:41 60 20 03/22/16 19:31 63 20 03/22/16 19:21 65 21 03/22/16 19:11 68 18 03/22/16 19:05 66 16 03/22/16 18:51 64 22 03/22/16 18:41 63 20 03/22/16 18:31 67 20 03/22/16 18:21 63 23 03/22/16 18:11 58 L 17 03/22/16 18:00 62 20 03/22/16 17:51 61 21 03/22/16 17:41 62 21 03/22/16 17:31 62 17 03/22/16 17:21 60 22 03/22/16 17:11 64 21 03/22/16 17:00 58 L 18 03/22/16 16:51 61 20 03/22/16 16:41 60 16 03/22/16 16:31 59 L 17 03/22/16 16:21 64 20 03/22/16 16:11 65 21 03/22/16 16:01 64 18 03/22/16 16:00 98 F 03/22/16 15:51 63 22 03/22/16 15:41 58 L 20 03/22/16 15:30 61 19 03/22/16 15:21 59 L 16 03/22/16 15:11 60 21 03/22/16 15:01 61 22 03/22/16 14:51 62 23 03/22/16 14:41 62 20 03/22/16 14:31 61 19 BP BP BP Pulse Ox 03/23/16 10:17 183/75 95 03/23/16 09:36 03/23/16 07:50 94 03/23/16 07:43 94 03/23/16 07:42 03/23/16 06:13 113/55 99 03/23/16 06:00 03/23/16 01:46 136/59 95 03/23/16 00:00 100 03/22/16 22:00 03/22/16 21:59 114/58 100 03/22/16 21:40 97 03/22/16 21:32 96 03/22/16 21:20 03/22/16 21:03 03/22/16 20:11 148/74 03/22/16 20:01 148/74 99 03/22/16 20:00 03/22/16 19:51 98 03/22/16 19:41 99 03/22/16 19:31 99 03/22/16 19:21 99 03/22/16 19:11 93 03/22/16 19:05 91 03/22/16 18:51 147/83 100 03/22/16 18:41 161/77 100 03/22/16 18:31 118/50 86 03/22/16 18:21 118/50 99 03/22/16 18:11 122/82 100 03/22/16 18:00 122/82 97 03/22/16 17:51 130/56 98 03/22/16 17:41 132/60 100 03/22/16 17:31 132/60 100 03/22/16 17:21 147/65 99 03/22/16 17:11 152/118 98 03/22/16 17:00 152/118 99 03/22/16 16:51 146/70 100 03/22/16 16:41 95/59 100 03/22/16 16:31 95/59 100 03/22/16 16:21 164/99 98 03/22/16 16:11 139/93 97 03/22/16 16:01 126/72 97 03/22/16 16:00 98 03/22/16 15:51 126/72 98 03/22/16 15:41 121/86 100 03/22/16 15:30 121/86 100 03/22/16 15:21 128/72 100 03/22/16 15:11 137/55 96 03/22/16 15:01 151/70 98 03/22/16 14:51 137/55 98 03/22/16 14:41 149/104 99 03/22/16 14:31 141/64 96 - Physical Examination General: No Apparent Distress (on bipap) HEENT: Positive: Normocephaly, Mucus Membranes Moist Neck: Positive: neck supple, trachea midline Cardiac: Positive: Reg Rate and Rhythm Lungs: Positive: Decreased Breath Sounds Neuro: Positive: Grossly Intact Abdomen: Positive: Soft, Active Bowel Sounds. Negative: Tender Skin: Positive: Clear. Negative: Rash Extremities: Present: normal. Absent: edema - Labs and Meds Coagulation 03/23/16 Range/Units 08:48 PT 24.2 H (12.2-14.9) Sec. INR 2.17 H (0.87-1.13) CBC 03/23/16 Range/Units 08:48 WBC 23.3 H (4.5-11.0) K/mm3 RBC 4.02 (3.65-5.03) M/mm3 Hgb 12.8 (11.8-15.2) gm/dl Hct 39.4 (35.5-45.6) % Plt Count 189 (140-440) K/mm3 Comprehensive Metabolic Panel 03/23/16 Range/Units 08:48 Sodium 149 H D (137-145) mmol/L Potassium 5.1 H (3.6-5.0) mmol/L Chloride 105.5 (98-107) mmol/L Carbon Dioxide 30 (22-30) mmol/L BUN 57 H (9-20) mg/dL Creatinine 1.5 (0.8-1.5) mg/dL Glucose 122 H (75-100) mg/dL Calcium 10.0 (8.4-10.2) mg/dL - Imaging and Cardiology EKG: image reviewed (09/2014: EF 55-60%)
--- NOTE | 2016-03-23 16:01 | Progress Note ---
Assessment and Plan Assessment and plan: Acute respiratory failure secondary to COPD exacerbation and rapid atrial fibrillation. He is still on BiPAP. Was transferred to telemetry from ICU yesterday. Pulmonology following. Atrial fibrillation with rapid ventricular response. Cardiology following. he is now rate controlled on Betapace. Hypotension. Resolved, off Levophed this has now being discontinued since blood pressure is now stable. Hypertension. Coumadin toxicity, Coagulopathy. INR was 5.9 on admission , went up to 10.4, so given Vitamin K iv. His INR is now 2.17. Repeat in am.. COPD exacerbation. Continue Solu-Medrol and Nebulizers. Pulmonology following. Protein energy malnutrition. Dietary consulted. DVT prophylaxis. On Coumadin. Full CODE STATUS History Interval history: Still has shortness of breath, still on BIPAP, no chest pain Hospitalist Physical - Physical exam Narrative exam: Gen appearance: not in acute distress, cachetic, on BIPAP-mask on HEENT: Normocephalic, atraumatic Neck : supple, no JVD Lungs: Decreased breath sounds bilaterally, lungs clear, no crackles, no wheezing . Heart : S1 and S2 irregular, no murmurs rubs or gallop, Abdomen: soft, nontender, nondistended, normal bowel sounds Extremities: No edema, clubbing or cyanosis, Neuro : Awake alert oriented 3, no focal signs Psych :appropriate mood - Constitutional Vitals: Temp Pulse Resp BP Pulse Ox 97.6 F 84 20 183/75 96 03/23/16 10:17 03/23/16 15:26 03/23/16 15:26 03/23/16 10:17 03/23/16 15:13 General appearance: Present: no acute distress (on bipap) Results - Labs CBC & Chem 7: 03/23/16 08:48 03/23/16 08:48 Labs: Laboratory Last Values WBC 23.3 K/mm3 (4.5-11.0) H 03/23/16 08:48 RBC 4.02 M/mm3 (3.65-5.03) 03/23/16 08:48 Hgb 12.8 gm/dl (11.8-15.2) 03/23/16 08:48 Hct 39.4 % (35.5-45.6) 03/23/16 08:48 MCV 98 fl (84-94) H 03/23/16 08:48 MCH 32 pg (28-32) 03/23/16 08:48 MCHC 32 % (32-34) 03/23/16 08:48 RDW 15.2 % (13.2-15.2) 03/23/16 08:48 Plt Count 189 K/mm3 (140-440) 03/23/16 08:48 Add Manual Diff Complete 03/20/16 14:48 Total Counted 100 03/20/16 14:48 Seg Neuts % (Manual) 97.0 % (40.0-70.0) H 03/20/16 14:48 Band Neutrophils % 0 % 03/20/16 14:48 Lymphocytes % (Manual) 0 % (13.4-35.0) L 03/20/16 14:48 Reactive Lymphs % (Man) 0 % 03/20/16 14:48 Monocytes % (Manual) 3.0 % (0.0-7.3) 03/20/16 14:48 Eosinophils % (Manual) 0 % (0.0-4.3) 03/20/16 14:48 Basophils % (Manual) 0 % (0.0-1.8) 03/20/16 14:48 Metamyelocytes % 0 % 03/20/16 14:48 Myelocytes % 0 % 03/20/16 14:48 Promyelocytes % 0 % 03/20/16 14:48 Blast Cells % 0 % 03/20/16 14:48 Nucleated RBC % Not Reportable 03/20/16 14:48 Seg Neutrophils # Man 19.5 K/mm3 (1.8-7.7) H 03/20/16 14:48 Band Neutrophils # 0.0 K/mm3 03/20/16 14:48 Lymphocytes # (Manual) 0.0 K/mm3 (1.2-5.4) L 03/20/16 14:48 Abs React Lymphs (Man) 0.0 K/mm3 03/20/16 14:48 Monocytes # (Manual) 0.6 K/mm3 (0.0-0.8) 03/20/16 14:48 Eosinophils # (Manual) 0.0 K/mm3 (0.0-0.4) 03/20/16 14:48 Basophils # (Manual) 0.0 K/mm3 (0.0-0.1) 03/20/16 14:48 Metamyelocytes # 0.0 K/mm3 03/20/16 14:48 Myelocytes # 0.0 K/mm3 03/20/16 14:48 Promyelocytes # 0.0 K/mm3 03/20/16 14:48 Blast Cells # 0.0 K/mm3 03/20/16 14:48 WBC Morphology Not Reportable 03/20/16 14:48 Hypersegmented Neuts Not Reportable 03/20/16 14:48 Hyposegmented Neuts Not Reportable 03/20/16 14:48 Hypogranular Neuts Not Reportable 03/20/16 14:48 Smudge Cells Not Reportable 03/20/16 14:48 Toxic Granulation Not Reportable 03/20/16 14:48 Toxic Vacuolation Not Reportable 03/20/16 14:48 Dohle Bodies Not Reportable 03/20/16 14:48 Pelger-Huet Anomaly Not Reportable 03/20/16 14:48 Justino Rods Not Reportable 03/20/16 14:48 Platelet Estimate Appears normal 03/20/16 14:48 Clumped Platelets Not Reportable 03/20/16 14:48 Plt Clumps, EDTA Not Reportable 03/20/16 14:48 Large Platelets Not Reportable 03/20/16 14:48 Giant Platelets Not Reportable 03/20/16 14:48 Platelet Satelliting Not Reportable 03/20/16 14:48 Plt Morphology Comment Not Reportable 03/20/16 14:48 RBC Morphology Not Reportable 03/20/16 14:48 Dimorphic RBCs Not Reportable 03/20/16 14:48 Polychromasia Not Reportable 03/20/16 14:48 Hypochromasia Not Reportable 03/20/16 14:48 Poikilocytosis Not Reportable 03/20/16 14:48 Anisocytosis 1+ 03/20/16 14:48 Microcytosis Not Reportable 03/20/16 14:48 Macrocytosis Not Reportable 03/20/16 14:48 Spherocytes Not Reportable 03/20/16 14:48 Pappenheimer Bodies Not Reportable 03/20/16 14:48 Sickle Cells Not Reportable 03/20/16 14:48 Target Cells Not Reportable 03/20/16 14:48 Tear Drop Cells Not Reportable 03/20/16 14:48 Ovalocytes Not Reportable 03/20/16 14:48 Helmet Cells Not Reportable 03/20/16 14:48 [place] Bodies Not Reportable 03/20/16 14:48 [place] Rings Not Reportable 03/20/16 14:48 Daniel Cells Not Reportable 03/20/16 14:48 Bite Cells Not Reportable 03/20/16 14:48 Crenated Cell Not Reportable 03/20/16 14:48 Elliptocytes Not Reportable 03/20/16 14:48 Acanthocytes (Spur) Not Reportable 03/20/16 14:48 Rouleaux Not Reportable 03/20/16 14:48 Hemoglobin C Crystals Not Reportable 03/20/16 14:48 Schistocytes Not Reportable 03/20/16 14:48 Malaria parasites Not Reportable 03/20/16 14:48 [place]re Bodies Not Reportable 03/20/16 14:48 Hem Pathologist Commnt No 03/20/16 14:48 PT 24.2 Sec. (12.2-14.9) H 03/23/16 08:48 INR 2.17 (0.87-1.13) H 03/23/16 08:48 APTT < 20.0 Sec. (24.2-36.6) L 03/20/16 14:48 POC ABG pH 7.395 (7.35-7.45) 03/20/16 17:31 POC ABG pCO2 57.1 (35-45) H 03/20/16 17:31 POC ABG pO2 85 (80-105) 03/20/16 17:31 POC ABG HCO3 34.9 03/20/16 17:31 POC ABG Total CO2 37 03/20/16 17:31 POC ABG O2 Sat 96 03/20/16 17:31 POC ABG Base Excess 10 03/20/16 17:31 FiO2 40 % 03/20/16 17:31 Sodium 149 mmol/L (137-145) H D 03/23/16 08:48 Potassium 5.1 mmol/L (3.6-5.0) H 03/23/16 08:48 Chloride 105.5 mmol/L (98-107) 03/23/16 08:48 Carbon Dioxide 30 mmol/L (22-30) 03/23/16 08:48 Anion Gap 19 mmol/L 03/23/16 08:48 BUN 57 mg/dL (9-20) H 03/23/16 08:48 Creatinine 1.5 mg/dL (0.8-1.5) 03/23/16 08:48 Estimated GFR 45 ml/min 03/23/16 08:48 BUN/Creatinine Ratio 38.00 % 03/23/16 08:48 Glucose 122 mg/dL (75-100) H 03/23/16 08:48 Lactic Acid 1.9 mmol/L (0.7-2.0) 03/20/16 16:29 Calcium 10.0 mg/dL (8.4-10.2) 03/23/16 08:48 Phosphorus 5.1 mg/dL (2.5-4.5) H 03/23/16 08:48 Magnesium 1.9 mg/dL (1.7-2.3) 03/23/16 08:48 Total Bilirubin 0.7 mg/dL (0.1-1.2) 03/20/16 14:48 Direct Bilirubin 0.3 mg/dL (0-0.2) H 03/20/16 14:48 Indirect Bilirubin 0.4 mg/dL 03/20/16 14:48 AST 20 units/L (5-40) 03/20/16 14:48 ALT 22 units/L (7-56) 03/20/16 14:48 Alkaline Phosphatase 63 units/L (35-129) 03/20/16 14:48 Total Creatine Kinase 25 units/L (55-170) L 03/21/16 02:32 CK-MB (CK-2) 2.3 ng/mL (0.0-4.0) 03/21/16 02:32 CK-MB (CK-2) Rel Index 9.2 (0-4) H 03/21/16 02:32 Troponin T < 0.010 ng/mL (0.00-0.029) 03/21/16 02:32 NT-Pro-B Natriuret Pep 70251 pg/mL (0-900) H 03/20/16 14:48 Total Protein 6.4 g/dL (6.3-8.2) 03/20/16 14:48 Albumin 3.4 g/dL (3.9-5) L 03/20/16 14:48 Albumin/Globulin Ratio 1.1 % 03/20/16 14:48 TSH 0.713 mlU/mL (0.270-4.200) 03/20/16 14:48 Free T4 1.45 ng/dL (0.76-1.46) 03/20/16 14:48 Digoxin < 0.2 ng/mL (0.9-2.0) L 03/20/16 16:29
[2016-03-23 17:01] LABS: BUN/Creatinine Ratio 37.5; Calcium 9.9 mg/dL (8.4-10.2); Chloride 102.7 mmol/L (98-107); Potassium 4.8 mmol/L (3.6-5.0)
[2016-03-23] MEDS ORDERED: ADRENALIN ONE (20:55)
[2016-03-23] MEDS ORDERED: CALCIUM CHLORIDE IV ONE (20:55)
[2016-03-23] MEDS ORDERED: SODIUM BICARBONATE IV ONE (20:55)
--- NOTE | 2016-03-23 21:38 | Event Note ---
Date: 03/23/16 .Patient took off his BIPAP and went into resp arrest.Was intubated and transferred to ICU.Now patient has pulse of 80 regular and BP of 210/135 mm hg. Talked with ex Scarlett Morillo .Wanted some time regarding decision for DNR/AND
[2016-03-23] MEDS ORDERED: NACL 0.45% 1000 ML 1,000 ML IV ONE ×2 (21:48→23:16)
--- NOTE | 2016-03-23 22:04 | XRay Report ---
FINAL REPORT EXAM: XR CHEST 1V AP HISTORY: ET Tube TECHNIQUE: AP portable view of the chest PRIORS: None. FINDINGS: Lines, tubes, and devices: Endotracheal tube terminates above the level of the clavicles. Lungs and pleura: Trachea is normal in position. Hyperinflation with flattened hemidiaphragms is noted suggesting COPD. Blunting of both costophrenic angles is likely due to the hyperinflation but small pleural effusions are not excluded. Underlying diffuse chronic interstitial fibrotic changes are present bilaterally. Mild increased markings in the left base could be fibrotic or could be related to early infiltrate. Cardiomediastinal silhouette: Cardiac and mediastinal silhouettes are unremarkable. Other: Bony structures are intact. Numerous skin folds are present over the chest. IMPRESSION: Numerous chronic findings including hyperexpansion related to COPD and probable bilateral interstitial fibrosis. Possible infiltrate in the left base is noted.
[2016-03-23 23:24] LABS: ISTAT Base Excess -11; ISTAT HCO3 19.8; ISTAT PCO2 71.8 (35-45); ISTAT PO2 112 (80-105); ISTAT SO2 95; ISTAT TCO2 22
[2016-03-23] MEDS: ZOCOR PO SCH (23:25)
--- NOTE | 2016-03-23 23:35 | Event Note ---
Date: 03/23/16 CODE BLUE called to [id number]. Patient noted to be in cardiac arrest with the PDA and apneic. Hospitalist is at the bedside as well. Decision was made to intubate. Intubation performed using Intosh 4 blade and an 8.0 intubation tube. Utilization of the cords was achieved. Tube was passed to 22 cm at the lip. Good colorimetry change was noted coarse lung sounds are noted bilaterally with no air sounds noted in the stomach region. Tube was secured. Postintubation x-ray was obtained demonstrating tube approximately 4 cm above the vianey. Our respiratory therapist asked to move the tube down to 24 cm at the lip. The rest of the code was run by the hospitalist.
[2016-03-23] MEDS ORDERED: LEVOPHED 8 MG in NACL 0.9% 250ML 242 ML IV SCH (23:45)
[2016-03-23] MEDS ORDERED: NACL 0.45% 1000 ML 1,000 ML IV SCH (23:45)
[2016-03-24 00:33] VITALS: BP 128/93
== END 2016-03-24 02:58 | DRG 208 ==
LOC: ED 12:40 → 4A 15:21 → CC1 20:10 → 4A 03-22 20:33 → CC1 03-23 21:16
PROVIDERS: ADMIT Internal Medicine; ATTEND Internal Medicine
PROC: 5A09457 Assistance with Respiratory Ventilation, 24-96 Consecutive Hours, Continuous Positive Airway Pressure (ICD-10-PCS; principal; 2016-03-20)
PROC: 4A033R1 Measurement of Arterial Saturation, Peripheral, Percutaneous Approach (ICD-10-PCS; 2016-03-20)
PROC: 0BH17EZ Insertion of Endotracheal Airway into Trachea, Via Natural or Artificial Opening (ICD-10-PCS; 2016-03-23)
PROC: 5A1935Z Respiratory Ventilation, Less than 24 Consecutive Hours (ICD-10-PCS; 2016-03-23)
PROC: 4A033R1 Measurement of Arterial Saturation, Peripheral, Percutaneous Approach (ICD-10-PCS; 2016-03-23)
DX: J96.02 Acute respiratory failure with hypercapnia (principal); E46 Unspecified protein-calorie malnutrition; I42.9 Cardiomyopathy, unspecified; J44.1 Chronic obstructive pulmonary disease with (acute) exacerbation; D68.9 Coagulation defect, unspecified; E87.1 Hypo-osmolality and hyponatremia; Z68.1 Body mass index [BMI] 19.9 or less, adult; E78.5 Hyperlipidemia, unspecified; T45.515A Adverse effect of anticoagulants, initial encounter; I48.2 Chronic atrial fibrillation; I11.0 Hypertensive heart disease with heart failure; I50.9 Heart failure, unspecified; D72.829 Elevated white blood cell count, unspecified; I95.9 Hypotension, unspecified; E87.5 Hyperkalemia; Y92.89 Other specified places as the place of occurrence of the external cause; R09.2 Respiratory arrest; I46.9 Cardiac arrest, cause unspecified
CPT/HCPCS: 36415; 36600; 51702; 71010; 80048; 80074; 80162; 82140; 82550; 82553; 82803; 82962; 83735; 83880; 84100; 84439; 84443; 84484; 85007; 85025; 85027; 85610; 85730; 87040; 87070; 87205; 92950; 93005; 93010; 93306; 94002; 94640; 94660; 94760; 96361; 96365; 96366; 96375; 99292; C9113; J0153; J0171; J0282; J0360; J0696; J1940; J1956; J2930; J3430; J7030; J7040; J7050; J7070